=== PATIENT | male | born 1945 | race Caucasian/White ===

== ENCOUNTER 2017-05-24 19:52 | Inpatient (IN) | payer OTHER, MEDICAID ==
[2017-05-24] MEDS ORDERED: TORADOL 30 MG VIAL IVP STA (20:44)
[2017-05-24] MEDS ORDERED: ZOFRAN INJ 4 MG VIAL IVP ONE (20:46)
[2017-05-24] MEDS ORDERED: PEPCID 20 MG IV PREMIX* 20 MG/50 ML BAG IV ONE ×2 (20:47→21:14)
--- NOTE | 2017-05-24 20:52 | DR.GENAD ---
HPI - PCP Primary Care Physician: PK NELSON - Complaint/Symptoms Chief Complaint Doctors Comments: Patient is complaining of his stomach hurting like someone is beating him up inside for the past 24 hours. States he has been having problems with his bowel movement and only had a small watery stool today. Normally he has to take something for his bowels to move. States he is out of his pain medicines and need something for his pain. States he can get his pain medicines filled tomorrow. He is complaining of chest pain with SOB. His appetite has been decreased and his stomach has been cramping with the pain 9 of 10. States he is a patient of Dr. Velazquez. He denies dysuria, hematuria or any recent trauma. States he is on two liters of oxygen at home at all times. Chief Complaint:: "I CAN'T HARDLY BREATHE, MY STOMACH IS CRAMPING AND HURTING, MY BOWELS WON'T MOVE, DIZZY, AND FEEL BAD HELL." - Nurses notes reviewed Nurses Notes Review: Yes - Source History Provided: Patient - Mode of Arrival Mode of Arrival: Wheelchair - Timing Onset of Chief Complaint: 05/24/17 Came on: Gradually - Duration Duration: Intermittent How lon Duration: Days - Location Location: diffuse abdominal pain - Severity Severity: Moderate, Severe - Modifying Factors Worsens:: nothing Improves:: nothing PMH - PMH Past Medical History: Yes Past Medical History: Anxiety, Asthma, CHF, COPD, Coronary Artery Disease, Diabetes, Dyslipidemia, Hypertension, [place] Past Medical History Comment: PACEMAKER/DEFIBRILLATOR Past Surgical History: Yes Surgical History: Angioplasty/Stents, Appendectomy, Cholecystectomy, Tonsillectomy Past Surgical History Comment: ADNOIDS REMOVED - Family History History of Family Medical Conditions: No - Social History Type of Tobacco Use: None Alcohol Use: None Do you use any recreational Drugs:: No Lives With: Family Lives Where: Home - infectious screening Have you traveled outside the country in the last 6 months?: No Isolation: Standard ROS - Review of Systems Constitutional: No Symptoms Reported, Weakness, Loss of Appetite. negative: See HPI, Chills, Diaphoresis, Fever, Malaise, Irritable, Fatigue, Other Eyes: No Symptoms Reported. negative: See HPI, Eye Pain, Blurred Vision, Tearing, Discharge, Photophobia, Diplopia, Other ENTM: No Symptoms Reported. negative: See HPI, Ear Pain, Ear Discharge, Pulling on Ears, Hearing Loss, Nose Pain, Nose Discharge, Epistaxis, Nose Congestion, Mouth Pain, Mouth Swelling, Loose Teeth, Drooling, Throat Pain, Throat Swelling, Ear Foreign Body Respiratoy: No Symptoms Reported, Non-Productive Cough, Short of Breath. negative: See HPI, Productive Cough, Moist Cough, Dry Cough, Hacking Cough, Barking Cough, Brassy Cough, Orthopnea, Stridor, Wheezing, Hemoptysis, Other Cardiovascular: No Symptoms Reported. negative: See HPI, Chest Pain, Edema, Palpitations, Syncope, Cyanosis, Skin Mottling, Other Gastrointestinal/Abdominal: Abdominal Pain, Constipation, Diarrhea, Nausea. negative: No Symptoms Reported, See HPI, Vomiting, Food Intolerance, Other Genitourinary: No Symptoms Reported. negative: See HPI, Discharge, Dysuria, Frequency, Hematuria, Pain, Bleeding, Other Neurological: No Symptoms Reported Musculoskeletal: No Symptoms Reported. negative: See HPI, Back Pain, Gout, Joint Pain, Joint Swelling, Muscle Pain, Muscle Stiffness, Neck Pain, Right, Left, Neck, Chest wall, Rib(s), Back, Shoulder, Arm, Elbow, Forearm, Wrist, Hand , Pelvis, Hip, Leg, Knee, Ankle, Foot, Other Integumentary: No Symptoms Reported. negative: See HPI, Change in Color, Change in Hair/Nails, Dryness, Lesions, Lumps, Rash, Itching, Wound, Bruises, Juandice, Other Hematologic/Lymphatic: No Symptoms Reported Endocrine: No Symptoms Reported Psychiatric: No Symptoms Reported. negative: See HPI, Anxiety, Depression, Hallucinations, Excessive crying, Suicidal, Other PE - Vital Signs Vitals: Temperature 97.3 F Pulse Rate 71 Respiratory Rate 24 Blood Pressure 139/70 O2 Sat by Pulse Oximetry 100 - General Limitations: No Limitations General Appearance: Alert, In Distress (mild), Obese - Head Head Exam: Normal Inspection, Atraumatic, Normocephalic - Eyes Eye exam: Normal Appearance, PERRL, EOMI. negative: Scleral Icterus, Conjunctival Injection, Nystagmus, Miosis, Mydrasis, Periorbital Swelling, Periorbital Tenderness, Other - ENT ENT Exam: Normal Exam, Normal Oropharynx, Normal External Ear Exam, Mucous Membranes Moist, TM's Normal Bilaterally External Ear Exam: Normal External Inspection TM/Canal Exam: Bilateral Normal Nose Exam: Normal Nose Exam Mouth Exam: Normal Inspection. negative: Drooling, Trismus, Lip Swelling, Tongue Elevation, Tongue Swelling, Laceration, Other Throat Exam: Normal Inspection. negative: Tonsillar Erythema, Tonsillomegaly, Tonsillar Exudate, R Peritonsillar Mass, L Peritonsillar Mass, Muffled Voice, Other - Neck Neck Exam: Normal Inspection, Full ROM, Trachea Midline. negative: Tenderness, Meningismus, Lymphadenopathy, Thyromegaly, Other - Chest Chest Inspection: Normal Inspection, Symmetric Chest Wall Rise. negative: Tenderness, Rash, Abscess, Other - Respiratory Respiratory Exam: Normal Lung Sounds Bilat Respiratory Exam: Bilateral Clear to Auscultation - Cardiovascular Cardiovascular Exam: Regular Rate, Normal Rhythm, Normal Heart Sounds. negative : Bradycardia, Tachycardia, Irregular Rhythm, Systolic Murmur, Diastolic Murmur , Rubs, Gallop, Clicks, JVD, +S1, +S2, +S3, +S4, Other - Abdominal Exam Abdominal Exam: Normal Inspection, Normal Bowel Sounds, Soft, Distention, Tenderness (suprapubic and RLQ tenderness), Guarding, Hyperactive Bowel Sounds Abdominal Tenderness: RLQ, Suprapubic, Moderate - Extremities Extremities Exam: Normal Inspection, Full ROM, Normal Capillary Refill - Back Back Exam: Normal Inspection, Full ROM. negative: Tenderness, (R) CVA Tenderness, (L) CVA Tenderness, Muscle Spasm, Paraspinal Tenderness, Vertebral Tenderness, Rashes, (R) Sciatic Notch Tenderness, (L) Sciatic Notch Tendern, (R ) Straight Leg Raise, (L) Straight Leg Raise, Other - Neurologic Neurological Exam: Alert, Oriented X3, CN II-XII Intact, Reflexes Normal. negative: Normal Gait (gait not tested) - Psychiatric Psychiatric Exam: Normal Affect, Normal Mood - Skin Skin Exam: Warm, Dry, Intact, Normal Color Course - Reevaluation 1st: Improved - Consultation Called: 23:01 Call Returned: 23:01 (Dr. Gross to admit) - Education/Counseling Education/Counseling: Patient, Family Educated On: Treatment, Diagnosis ROR - Labs Reviewed Laboratory Results Reviewed?: Yes (all labs and x-ray results reviewed and discussed with patient) Result Diagrams: 05/24/17 21:10 05/24/17 21:10 Laboratory: WBC 19.6 X10^3/uL (3.6-10.0) H 05/24/17 21:10 RBC 5.61 X10^6/uL (4.7-6.0) 05/24/17 21:10 Hgb 12.0 g/dL (13.5-18.0) L 05/24/17 21:10 Hct 38.7 % (42.0-54.0) L 05/24/17 21:10 MCV 69.0 fL (80.0-100.0) L 05/24/17 21:10 MCH 21.4 pg (27.0-34.0) L 05/24/17 21:10 MCHC 31.0 g/dL (33.0-35.0) L 05/24/17 21:10 RDW 19.8 % (11.6-16.5) H 05/24/17 21:10 Plt Count 218 X10^3/uL (150.0-450.0) 05/24/17 21:10 Plt Count Comment Adequate (ADEQUATE) 05/24/17 21:10 MPV 11.1 fL (7.4-11.0) H 05/24/17 21:10 Neut % 89.2 % (42.0-75.0) H 05/24/17 21:10 Lymph % 3.9 % (21.0-51.0) L 05/24/17 21:10 Clinch % 4.1 % (0.0-13.0) 05/24/17 21:10 Eos % 1.2 % (0.9-2.9) 05/24/17 21:10 Baso % 1.6 % (0.2-1.0) H 05/24/17 21:10 Neut # 17.5 x10^3/uL (2.2-4.8) H 05/24/17 21:10 Lymph # 0.8 X10^3/uL (1.3-2.9) L 05/24/17 21:10 Clinch # 0.8 x10^3/uL (0.3-0.8) 05/24/17 21:10 Eos # 0.2 x10^3/uL (0.0-0.2) 05/24/17 21:10 Baso # 0.3 X10^3/uL (0.0-0.1) H 05/24/17 21:10 Absolute Nucleated RBC 0.0 /100WBC 05/24/17 21:10 Total Counted 100 05/24/17 21:10 Neutrophils % (Manual) 92 % (39-76) H 05/24/17 21:10 Lymphocytes % (Manual) 5 % (13-43) L 05/24/17 21:10 Monocytes % (Manual) 3 % (4-9) L 05/24/17 21:10 Plt Morphology Comment Normal (NORMAL) 05/24/17 21:10 RBC Morphology Abnormal (NORMAL) 05/24/17 21:10 Hypochromasia 1+ A 05/24/17 21:10 Poikilocytosis 1+ A 05/24/17 21:10 Microcytosis 1+ A 05/24/17 21:10 INR Target Range - 05/24/17 21:10 INR 1.08 (0.8-1.3) 05/24/17 21:10 PTT 30.7 SECONDS (22.9-36.5) 05/24/17 21:10 PTT Comment - 05/24/17 21:10 Sodium 134 mmol/L (136-145) L 05/24/17 21:10 Corrected Sodium 138 mmol/L (136-145) 05/24/17 21:10 Potassium 5.3 mmol/L (3.5-5.1) H 05/24/17 21:10 Chloride 100 mmol/L (98-107) 05/24/17 21:10 Carbon Dioxide 26.3 mmol/L (21-32) 05/24/17 21:10 BUN 37 mg/dL (7-18) H 05/24/17 21:10 Creatinine 1.58 mg/dL (0.70-1.30) H 05/24/17 21:10 Est GFR (MDRD) Af Amer 56 (>60) L 05/24/17 21:10 Est GFR (MDRD) Non-Af 46 (>60) L 05/24/17 21:10 Glucose 246 mg/dL (65-99) H 05/24/17 21:10 Calcium 8.9 mg/dL (8.5-10.1) 05/24/17 21:10 Corrected Calcium 9.5 mg/dL (8.5-10.1) 05/24/17 21:10 Magnesium 1.8 mg/dL (1.7-2.9) 05/24/17 21:10 Total Bilirubin 0.30 mg/dL (0.2-1.0) 05/24/17 21:10 AST 15 Units/L (15-37) 05/24/17 21:10 ALT 18 Units/L (12-78) 05/24/17 21:10 Alkaline Phosphatase 108 Units/L (46-116) 05/24/17 21:10 Creatine Kinase 40 Units/L (39-308) 05/24/17 21:10 CK-MB (CK-2) 1.3 ng/mL (0-4.0) 05/24/17 21:10 CK/CKMB % Calc 3.3 % (<4) 05/24/17 21:10 Troponin I 0.02 ng/mL (0-1.5) 05/24/17 21:10 Total Protein 7.4 g/dL (6.4-8.2) 05/24/17 21:10 Albumin 3.3 g/dL (3.4-5.0) L 05/24/17 21:10 Globulin 4.1 g/dL (2.5-4.5) 05/24/17 21:10 Albumin/Globulin Ratio 0.8 Ratio (1.1-2.1) L 05/24/17 21:10 Amylase 64 Units/L (25-115) 05/24/17 21:10 Lipase 78 Units/L (73-393) 05/24/17 21:10 - XRAY XRAY Interpreted by: Radiologist (CT abdomen and pelvis: Acute distal descending colon and sigmoid colon diverticulitis without free air. Mild right hydronephrois.cardiomegaly) - EKG Rate: 76 Ke[place]: Normal Rhythm: NSR Block: RBBB, IVCD Hypertrophy: LVH - Diagnosis Discharge Problem: acute distal descending diverticulitis, Colon, diverticulosis, Chronic kidney disease (CKD), Hyperkalemia, Right kidney stone - Discharge Plan Disposition: ADMITTED INPATIENT Condition: Stable - Follow ups/Referrals - Instructions
--- NOTE | 2017-05-24 21:05 | RAD ---
Chest AP portable Indication: Dyspnea. Stomach current. Constipation. Findings: There is cardiomegaly with AICD lead projecting as expected. Overlying monitoring lead sign ificantly obscure detail. There is right upper lung granuloma suspected. There is no pneumothorax, la rge effusion dense consolidation. Mild increased interstitial markings noted. Impression: Cardiomegaly and borderline edema. Correlate for signs CHF. Reported By:
[2017-05-24] MEDS ORDERED: ZOFRAN INJ 4 MG VIAL ONE (21:14)
[2017-05-24] MEDS ORDERED: TORADOL 30 MG VIAL ONE (21:14)
[2017-05-24 21:19] LABS: BASOPHILS # (AUTO) 0.3 X10^3/uL (0.0-0.1); BASOPHILS % (AUTO) 1.6 % (0.2-1.0); EOSINOPHILS # (AUTO) 0.2 x10^3/uL (0.0-0.2); EOSINOPHILS % (AUTO) 1.2 % (0.9-2.9); HEMATOCRIT 38.7 % (42.0-54.0); LYMPHOCYTES # (AUTO) 0.8 X10^3/uL (1.3-2.9); LYMPHOCYTES % (AUTO) 3.9 % (21.0-51.0); MEAN CORPUSCULAR HEMOGLOBIN 21.4 pg (27.0-34.0); MEAN PLATELET VOLUME 11.1 fL (7.4-11.0); MONOCYTES # (AUTO) 0.8 x10^3/uL (0.3-0.8); MONOCYTES % (AUTO) 4.1 % (0.0-13.0); NEUTROPHILS # (AUTO) 17.5 x10^3/uL (2.2-4.8); NEUTROPHILS % (AUTO) 89.2 % (42.0-75.0); PLATELET COUNT 218 X10^3/uL (150.0-450.0); RED BLOOD COUNT 5.61 X10^6/uL (4.7-6.0); RED CELL DISTRIBUTION WIDTH 19.8 % (11.6-16.5); WHITE BLOOD COUNT 19.6 X10^3/uL (3.6-10.0)
--- NOTE | 2017-05-24 21:19 | CT ---
CT head without contrast Indication: Abdominal pain and chronic constipation. History of heart disease, diabetes and hypertens ion. Technique: Helical images through the abdomen and pelvis without contrast. Coronal and sagittal refor mats provided. Findings: Limited images through the lower chest shows chronic peribronchial thickening and scarring in the right middle lobe. There is right effusion. There is cardiomegaly with AICD leads noted. The r eview of bone windows demonstrates spine and pelvis degenerative change. Abdomen: The gallbladder is absent. The liver, spleen pancreas show no acute abnormality. A few pancr eas calcifications and atrophic changes noted, suggesting prior pancreatitis no current acute pancrea titis evidence seen. The adrenal glands are normal. The stomach and small bowel appear normal. Append ix is not seen, absent by history. The right colon is normal. There is colonic diverticulosis, with i nflammatory change around the sigmoid colon axial image 79 and the distal descending colon axial 70 t hrough 72 suggesting acute diverticulitis no drainable abscess gross free air noted. The left kidney is normal without hydroureteronephrosis there is mild right hydronephrosis with tiny stone in the proximal right ureter near the ureteropelvic junction is seen on axial image 57 and radha ures 3 mm. Aortic and branch vessel plaque noted. Pelvis: The urinary bladder rectum. The prostate gland is. [place]: 1. Acute distal descending colon and sigmoid colon diverticulitis without free air, pneumatosis or dr ainable collection. Surgical follow-up recommended. 2. Mild right hydronephrosis with tiny stone at the right ureteropelvic junction. 3. Cardiomegaly, chronic lung changes, spine degenerative change, sequela of old pancreatitis and oth er findings as above Reported By:
[2017-05-24 21:26] LABS: HYPOCHROMASIA 1+; MICROCYTOSIS 1+; PLATELET MORPHOLOGY COMMENT NORMAL (NORMAL); POIKILOCYTOSIS 1+
[2017-05-24 21:38] LABS: CALCIUM 8.9 mg/dL (8.5-10.1); CARBON DIOXIDE 26.3 mmol/L (21-32); CREATININE 1.58 mg/dL (0.70-1.30); TROPONIN I 0.02 ng/mL (0-1.5)
[2017-05-24] MEDS ORDERED: CIPRO IV 400 MG PREMIX* 400 MG/200 ML IV.SOLN. IV ONE ×2 (21:41→23:10)
[2017-05-24] MEDS ORDERED: FLAGYL IV PREMIX 500 MG BAG 500 MG/100 ML BAG IV ONE ×2 (21:41→21:48)
[2017-05-24 21:42] LABS: ALBUMIN 3.3 g/dL (3.4-5.0); CKMB % 3.3 % (<4); COR CA(FOR HYPOALB) 9.5 mg/dL (8.5-10.1); CREATINE KINASE MB 1.3 ng/mL (0-4.0); MAGNESIUM 1.8 mg/dL (1.7-2.9); TOTAL PROTEIN 7.4 g/dL (6.4-8.2)
[2017-05-24] MEDS: NS 1000 ML 1,000 ML IV SCH (22:01)
[2017-05-24 22:16] LABS: BILIRUBIN,URINE NEGATIVE (NEGATIVE); BLOOD/HEMOGLOBIN,URINE 5+ (NEGATIVE); GLUCOSE, URINE NEGATIVE (NEGATIVE); KETONES,URINE NEGATIVE (NEGATIVE); LEUKOCYTE ESTERASE ,URINE NEGATIVE (NEGATIVE); NITRITES,URINE NEGATIVE (NEGATIVE); PROTEIN,URINE 3+ (NEGATIVE); UROBILINOGEN,URINE NORMAL (NORMAL)
[2017-05-24] MEDS ORDERED: PERCOCET TAB 5/325 MG PO PRN (22:32)
[2017-05-24] MEDS ORDERED: PHENERGAN INJ 25 MG IVP PRN (22:32)
[2017-05-24 22:39] LABS: APPEARANCE,URINE CLEAR (CLEAR); BACTERIA,URINE NEGATIVE /HPF (NEGATIVE); COLOR,URINE YELLOW (YELLOW); SQUAMOUS EPITHELIAL CELL,UR RARE /HPF (NEGATIVE)
[2017-05-25] MEDS: FLAGYL IV PREMIX 500 MG BAG 500 MG/100 ML BAG IV SCH ×3 (06:13→22:36)
[2017-05-25] MEDS: PROTONIX INJ 40 MG VIAL IVP SCH (08:43)
[2017-05-25] MEDS: CIPRO IV 400 MG PREMIX* 400 MG/200 ML IV.SOLN. IV SCH ×2 (08:43→20:22)
[2017-05-25 09:20] LABS: BASOPHILS # (AUTO) 0.2 X10^3/uL (0.0-0.1); BASOPHILS % (AUTO) 1.3 % (0.2-1.0); EOSINOPHILS # (AUTO) 0.1 x10^3/uL (0.0-0.2); EOSINOPHILS % (AUTO) 1.2 % (0.9-2.9); HEMOGLOBIN 10.1 g/dL (13.5-18.0); LYMPHOCYTES # (AUTO) 0.7 X10^3/uL (1.3-2.9); LYMPHOCYTES % (AUTO) 5.9 % (21.0-51.0); MEAN CORPUSCULAR HEMOGLOBIN 21.4 pg (27.0-34.0); MEAN CORPUSCULAR HGB CONC 31.6 g/dL (33.0-35.0); MEAN CORPUSCULAR VOLUME 67.7 fL (80.0-100.0); MEAN PLATELET VOLUME 10.9 fL (7.4-11.0); MONOCYTES # (AUTO) 0.8 x10^3/uL (0.3-0.8); NEUTROPHILS % (AUTO) 84.6 % (42.0-75.0); PLATELET COUNT 170 X10^3/uL (150.0-450.0); RED BLOOD COUNT 4.73 X10^6/uL (4.7-6.0); RED CELL DISTRIBUTION WIDTH 19.8 % (11.6-16.5); WHITE BLOOD COUNT 11.8 X10^3/uL (3.6-10.0)
[2017-05-25 09:29] LABS: ALBUMIN 2.6 g/dL (3.4-5.0); CALCIUM 8.1 mg/dL (8.5-10.1); CARBON DIOXIDE 24.3 mmol/L (21-32); COR CA(FOR HYPOALB) 9.2 mg/dL (8.5-10.1); CREATININE 1.95 mg/dL (0.70-1.30)
[2017-05-25 09:34] LABS: PLATELET MORPHOLOGY COMMENT NORMAL (NORMAL)
[2017-05-25 09:35] LABS: HYPOCHROMASIA 2+
[2017-05-25 09:36] LABS: POIKILOCYTOSIS SLIGHT
[2017-05-25 09:37] LABS: ANISOCYTOSIS 2+; MICROCYTOSIS 1+
[2017-05-25 09:38] LABS: OVALOCYTES SLIGHT
[2017-05-25] MEDS: MORPHINE SULFATE INJ 2 MG INJ IVP PRN ×2 (10:11→20:45)
[2017-05-25] MEDS ORDERED: ATIVAN TAB 0.5 MG PO PRN (11:35)
--- NOTE | 2017-05-25 11:41 | DR.H&P ---
H&P - History & Physical for Day of: H&P Date: 05/24/17 - Chief Complaint Chief Complaint: ABDOMINAL PAIN - Allergies Allergies/Adverse Reactions: Allergies Allergy/AdvReac Type Severity Reaction Status Date / Time zolpidem [From Ambien] Allergy Verified 05/24/17 20:00 - History of Present Illness History of Present Illness: 71 WM ER ADMISSION WITH ABD PAIN, CT SCAN REVEALED ACUTE DIVERTICULITIS. PT STARTED ON IV ATBX, ADMITTED FOR EALUATION AND TREATMENT OF ACUTE DIVERTICULITIS AND ABDOMINAL PAIN. PMH OF DM, CHF, CAD, GERD , DEPRESSION, OA - Past Medical History Past Medical History: Anxiety, Asthma, CHF, COPD, Coronary Artery Disease, Diabetes, Dyslipidemia, Hypertension, [place] - Past Surgical History Surgical History: Appendectomy, Cholecystectomy - Family History Family Medical History: Diabetes Mellitus, [place], Hypertension - Social History Does patient currently use any type of tobacco product: No (stopped 25 years ago ) Have you used tobacco products in the last 12 months: No Type of Tobacco Use: Cigarettes How many years tobacco product used: 35 Does any household member use tobacco: No Alcohol Use: None Drug Use: None - Medications Home Medications: Albuterol Sulfate [VENTOLIN or PROAIR HFA Inhaler *] 2 inhalation INH Q4H PRN [History Confirmed 05/24/17] Aspirin EC [ASPIRIN EC 81 MG *] 81 mg PO DAILY 05/24/17 [History Confirmed 05/24] Atorvastatin Calcium [Lipitor] 80 mg PO HS 05/24/17 [History Confirmed 05/24/17] Budesonide-Formoterol [SYMBICORT INH 160-4.5 mcg (10.2 g) *] 2 inhalation INH BID 05/24/17 [History Confirmed 05/24/17] Carvedilol [COREG TAB 12.5 MG *] 12.5 mg pe PO BID 05/24/17 [History Confirmed 05/24/17] Clopidogrel Bisulfate [PLAVIX TAB 75 MG *] 75 mg PO DAILY 05/24/17 [History Confirmed 05/24/17] Dexlansoprazole [Dexilant] 1 cap PO DAILY 05/24/17 [History Confirmed 05/24/17] Fluoxetine HCl [Prozac cap 40 mg] 40 mg PO DAILY 05/24/17 [History Confirmed 06/09] Furosemide [LASIX TAB 40 MG *] 1 tab PO DAILY 05/24/17 [History Confirmed ] Hydrocodone-Acet 10/325 mg [[place] 10/325 Tab] 1 tab PO QID PRN 05/24/17 [ History Confirmed 05/24/17] Insulin Glargine (Lantus) [LANTUS INSULIN 10 ML VIAL *] 35 units SC QAM [History Confirmed 05/24/17] Lorazepam [Ativan Tab 0.5 mg] 0.5 mg PO Q6H PRN 05/24/17 [History Confirmed 06/09] Meclizine HCl [Antivert Tab 25 mg] 25 mg PO TID PRN 05/24/17 [History Confirmed 05/24/17] Metoclopramide HCl [Reglan] 5 mg PO BID 05/24/17 [History Confirmed 05/24/17] Plecanatide [Trulance] 1 tab PO DAILY 05/24/17 [History Confirmed 05/24/17] Sacubitril/Valsartan [Entresto 24 mg-26 mg Tablet] 1 tab PO BID 05/24/17 [ History Confirmed 05/24/17] Theophylline Sr [JAY-DUR 300 MG (GENERIC) *] 0.5 tab PO BID 05/24/17 [History Confirmed 05/24/17] Tizanidine HCl [Zanaflex] 4 mg PO HS PRN 05/24/17 [History Confirmed 05/24/17] Sulfamethoxazole-Trimethoprim [BACTRIM DS TAB 800/160 MG *] 1 tab PO BID [History Confirmed 05/25/17] - Review of Systems Constitutional: Fever, Chills Eyes: No Symptoms Reported ENT: No Symptoms Reported Respiratory: SOB with Excertion Cardiovascular: No Symptoms Reported Gastrointestinal: Nausea, Abdominal Pain Genitourinary: No Symptoms Reported Musculoskeletal: Back Pain, Leg Pain Skin: No Symptoms Reported Neurological: No Symptoms Reported - Physical Exam Vital Signs: Temperature 97.5 F Pulse Rate [Apical] 75 Pulse Rate 71 Respiratory Rate 20 Blood Pressure [Right Arm] 104/55 Blood Pressure 139/70 O2 Sat by Pulse Oximetry 99 Oriented: Normal Eyes: Normal Ear: Normal, Left Throat: Normal Respiratory: RLL Diminished, LLL Diminished Cardiovascular: Normal, Other (PACER/DEFIBRILLATOR PRESENT) : Normal Auscultation: Bowel Sounds: Decreased Palpation: Normal Tenderness: Diffuse Skin: Normal Musculoskeletal: Back:Lumbar, Instability Psychiatric: Depression Affect: Depressed Speech Pattern: Clear, Appropriate - Assessment/Plan (1) Diverticulitis Status: Acute Plan: ADMIT, NPO, IV ATBX, BP MONITORING. BLOOD SUGAR CONTROL. REPEAT AM LABS , REVIEW HOME MEDS (2) CAD (coronary artery disease) Status: Acute (3) HTN (hypertension) Status: Acute (4) Diabetes Status: Acute (5) Chronic kidney disease (CKD) Status: Acute
[2017-05-25] MEDS ORDERED: ALBUTEROL SULFATE INH SCH (11:45)
[2017-05-25] MEDS: HumuLIN R SC PRN ×2 (11:51→16:58)
[2017-05-25] MEDS: NS 1000 ML 1,000 ML IV SCH ×2 (12:14→16:14)
[2017-05-25] MEDS: GYLCERIN ADULT SUPP RECTAL SCH (16:14)
[2017-05-25] MEDS: PROVENTIL NEB TX 0.083% 2.5MG/ 3ML NEB SCH (16:53)
[2017-05-25] MEDS ORDERED: NULYTELY or GO-LYTELY PO SCH (19:00)
--- NOTE | 2017-05-25 19:28 | RAD ---
ACUTE ABDOMINAL SERIES CLINICAL HISTORY: 71-year-old male with acute diverticulitis. COMPARISON: Chest radiograph 05/24/2017. FINDINGS: Re-demonstration cardiomegaly with stable appearance of left chest wall AICD. There is no focal conso lidation, pleural effusion or pneumothorax. Pulmonary vascularity is normal. Abdominal radiographs demonstrate a nonobstructive bowel gas pattern. Gas and stool are seen througho ut the colon. There is no small bowel distention. There is no radiographic evidence of pneumoperitone um. Imaged osseous structures are intact. Soft tissues are unremarkable. IMPRESSION: 1. No acute cardiopulmonary process. 2. Nonobstructive bowel gas pattern without radiographic evidence of pneumoperitoneum. Reported By:
[2017-05-25] MEDS: THEO-DUR TAB 300 MG PO SCH (20:26)
[2017-05-25] MEDS: LIPITOR TAB 40 MG PO SCH (20:26)
[2017-05-25] MEDS: REGLAN TAB 5 MG PO SCH (20:27)
[2017-05-25] MEDS: ENTRESTO 24/26 MG TAB PO SCH (20:27)
[2017-05-25] MEDS: COREG TAB 12.5 MG PO SCH (20:27)
[2017-05-25] MEDS ORDERED: RESTORIL CAP 15 MG PO PRN (20:36)
[2017-05-25] MEDS ORDERED: PATIENT'S HOME MEDICATION (Atorvastatin Calcium [Lipitor] 80 MG) PO SCH (21:00)
[2017-05-25] MEDS ORDERED: BUDESONIDE FORMOTEROL INH SCH (21:00)
[2017-05-26] MEDS: PULMICORT NEB TX 0.5 MG NEB SCH ×3 (00:23→20:17)
[2017-05-26] MEDS: PROVENTIL NEB TX 0.083% 2.5MG/ 3ML NEB SCH ×5 (00:23→20:17)
[2017-05-26] MEDS: NS 1000 ML 1,000 ML IV SCH ×3 (03:39→16:49)
[2017-05-26] MEDS: FLAGYL IV PREMIX 500 MG BAG 500 MG/100 ML BAG IV SCH ×3 (05:20→21:04)
[2017-05-26 05:34] LABS: BASOPHILS # (AUTO) 0.1 X10^3/uL (0.0-0.1); BASOPHILS % (AUTO) 0.6 % (0.2-1.0); EOSINOPHILS # (AUTO) 0.2 x10^3/uL (0.0-0.2); EOSINOPHILS % (AUTO) 2.3 % (0.9-2.9); HEMATOCRIT 30.5 % (42.0-54.0); HEMOGLOBIN 9.9 g/dL (13.5-18.0); LYMPHOCYTES # (AUTO) 0.9 X10^3/uL (1.3-2.9); MEAN CORPUSCULAR HEMOGLOBIN 22.1 pg (27.0-34.0); MEAN CORPUSCULAR HGB CONC 32.4 g/dL (33.0-35.0); MEAN CORPUSCULAR VOLUME 68.1 fL (80.0-100.0); MEAN PLATELET VOLUME 11.3 fL (7.4-11.0); MONOCYTES # (AUTO) 0.9 x10^3/uL (0.3-0.8); MONOCYTES % (AUTO) 9.4 % (0.0-13.0); NEUTROPHILS # (AUTO) 7.5 x10^3/uL (2.2-4.8); NEUTROPHILS % (AUTO) 78.7 % (42.0-75.0); PLATELET COUNT 157 X10^3/uL (150.0-450.0); RED BLOOD COUNT 4.48 X10^6/uL (4.7-6.0); RED CELL DISTRIBUTION WIDTH 19.3 % (11.6-16.5); WHITE BLOOD COUNT 9.5 X10^3/uL (3.6-10.0)
[2017-05-26 05:46] LABS: ALBUMIN 2.5 g/dL (3.4-5.0); CALCIUM 8.3 mg/dL (8.5-10.1); CARBON DIOXIDE 26.2 mmol/L (21-32); COR CA(FOR HYPOALB) 9.5 mg/dL (8.5-10.1); CREATININE 1.82 mg/dL (0.70-1.30); TOTAL PROTEIN 5.8 g/dL (6.4-8.2)
[2017-05-26 06:20] LABS: HYPOCHROMASIA 2+; MICROCYTOSIS 1+; OVALOCYTES PRESENT; PLATELET MORPHOLOGY COMMENT NORMAL (NORMAL); POIKILOCYTOSIS 1+
[2017-05-26] MEDS: CIPRO IV 400 MG PREMIX* 400 MG/200 ML IV.SOLN. IV SCH ×2 (08:24→21:04)
[2017-05-26] MEDS: COREG TAB 12.5 MG PO SCH ×2 (08:25→21:04)
[2017-05-26] MEDS: PROTONIX INJ 40 MG VIAL IVP SCH (08:25)
[2017-05-26] MEDS: REGLAN TAB 5 MG PO SCH ×2 (08:25→21:04)
[2017-05-26] MEDS: ENTRESTO 24/26 MG TAB PO SCH ×2 (08:25→21:04)
[2017-05-26] MEDS: LASIX PO SCH (08:26)
[2017-05-26] MEDS: NORCO 10/325 TAB PO PRN (08:26)
[2017-05-26] MEDS: THEO-DUR TAB 300 MG PO SCH ×2 (08:26→21:01)
[2017-05-26] MEDS: PROzac PO SCH (08:27)
[2017-05-26] MEDS: LANTUS SC SCH (08:29)
[2017-05-26] MEDS: PATIENT'S HOME MEDICATION (Dexlansoprazole [Dexilant] 1 CAP) PO SCH (08:32)
[2017-05-26] MEDS ORDERED: PATIENT'S HOME MEDICATION (Fluoxetine Hcl [Prozac Cap 40 Mg] 40 MG) PO SCH (09:00)
[2017-05-26] MEDS: GYLCERIN ADULT SUPP RECTAL SCH (12:17)
[2017-05-26 14:16] LABS: HEMATOCRIT 29.5 % (42.0-54.0); HEMOGLOBIN 9.5 g/dL (13.5-18.0)
[2017-05-26] MEDS: LIPITOR TAB 40 MG PO SCH (21:03)
[2017-05-26] MEDS: MORPHINE SULFATE INJ 2 MG INJ IVP PRN (21:08)
[2017-05-27] MEDS: MORPHINE SULFATE INJ 2 MG INJ IVP PRN ×3 (01:20→11:40)
[2017-05-27] MEDS: FLAGYL IV PREMIX 500 MG BAG 500 MG/100 ML BAG IV SCH ×2 (05:14→13:15)
[2017-05-27] MEDS: NS 1000 ML 1,000 ML IV SCH (05:15)
[2017-05-27 06:12] LABS: BASOPHILS % (AUTO) 0.5 % (0.2-1.0); EOSINOPHILS # (AUTO) 0.2 x10^3/uL (0.0-0.2); EOSINOPHILS % (AUTO) 2.7 % (0.9-2.9); HEMATOCRIT 29.1 % (42.0-54.0); HEMOGLOBIN 9.5 g/dL (13.5-18.0); LYMPHOCYTES # (AUTO) 0.7 X10^3/uL (1.3-2.9); LYMPHOCYTES % (AUTO) 8.2 % (21.0-51.0); MEAN CORPUSCULAR HGB CONC 32.5 g/dL (33.0-35.0); MEAN CORPUSCULAR VOLUME 67.6 fL (80.0-100.0); MEAN PLATELET VOLUME 11.4 fL (7.4-11.0); MONOCYTES # (AUTO) 0.8 x10^3/uL (0.3-0.8); MONOCYTES % (AUTO) 9.1 % (0.0-13.0); NEUTROPHILS # (AUTO) 6.9 x10^3/uL (2.2-4.8); NEUTROPHILS % (AUTO) 79.5 % (42.0-75.0); PLATELET COUNT 143 X10^3/uL (150.0-450.0); RED CELL DISTRIBUTION WIDTH 19.4 % (11.6-16.5); WHITE BLOOD COUNT 8.6 X10^3/uL (3.6-10.0)
[2017-05-27 06:49] LABS: HYPOCHROMASIA 1+; MICROCYTOSIS SLIGHT; PLATELET MORPHOLOGY COMMENT NORMAL (NORMAL)
[2017-05-27 06:51] LABS: ALANINE AMINOTRANSFERASE 13 Units/L (12-78); ALBUMIN 2.5 g/dL (3.4-5.0); ALKALINE PHOSPHATASE 60 Units/L (46-116); ASPARTATE AMINO TRANSFERASE 12 Units/L (15-37); BLOOD UREA NITROGEN 26 mg/dL (7-18); CALCIUM 8.1 mg/dL (8.5-10.1); CARBON DIOXIDE 23.9 mmol/L (21-32); CHLORIDE 103 mmol/L (98-107); COR CA(FOR HYPOALB) 9.3 mg/dL (8.5-10.1); COR NA(FOR HYPERGLY) 137 mmol/L (136-145); CREATININE 1.37 mg/dL (0.70-1.30); SODIUM 136 mmol/L (136-145); TOTAL PROTEIN 5.6 g/dL (6.4-8.2); eGFR BLACK RACES > 60 (>60); eGFR NON BLACK RACES 54 (>60)
[2017-05-27] MEDS: NORCO 10/325 TAB PO PRN (07:20)
--- NOTE | 2017-05-27 07:20 | RAD ---
Examination: PA and lateral chest History: SOB, chest pain Comparison 05/24/2017 Findings: Continued cardiac prominence with stable position of AICD. The lungs are clear of active di sease. Small pleural effusions are present. A tubular structure projected over the anterior heart is consistent with coronary artery stent/calcification. Impression: Upper normal heart size with pacemaker. Small bilateral pleural effusions. Reported By:
--- NOTE | 2017-05-27 07:33 | CT ---
History: Follow-up acute diverticulitis Study: CT of the abdomen and pelvis without IV contrast. Sagittal and coronal reformations were provi ded. Comparison: May 24, 2017 Findings: There is a small right pleural effusion increased in size and a tiny left pleural effusion, new. There is an unchanged scar at the right lung base anteriorly. The liver and spleen and adrenal glands are unremarkable. There are couple of punctate calcifications in the head and uncinate process of the pancreas. There is persistent mild right hydronephrosis with a mildly dilated right ureter. T he previously demonstrated calculus at the right UPJ has progressed down the ureter to either be in t he bladder or in the distal ureteral vesicle junction. There is persistent stranding of fat planes about the sigmoid colon with multiple diverticuli. There is a new fluid collection above the dome of the bladder measuring over 3 cm transverse width and 4.4 cm AP diameter. There is no small bowel distention. There are degenerative changes of the lumbar spin e and there is heavy atherosclerotic calcification without demonstration of an aneurysm. Impression: 1. Increasingly severe diverticulitis with new fluid collection above the dome of the bladder that ma y be a developing abscess. 2. Increasing size of a small right pleural effusion and a new minimal left pleural effusion 3. Mild right hydronephrosis and right hydroureter with a 2 mm calculus now advanced into the bladder or in the distal ureterovesical junction Reported By:
[2017-05-27] MEDS: PROzac PO SCH (08:00)
[2017-05-27] MEDS: CIPRO IV 400 MG PREMIX* 400 MG/200 ML IV.SOLN. IV SCH (08:00)
[2017-05-27] MEDS: REGLAN TAB 5 MG PO SCH (08:00)
[2017-05-27] MEDS: LASIX PO SCH (08:00)
[2017-05-27] MEDS: COREG TAB 12.5 MG PO SCH (08:00)
[2017-05-27] MEDS: PROTONIX INJ 40 MG VIAL IVP SCH (08:00)
[2017-05-27] MEDS: THEO-DUR TAB 300 MG PO SCH (08:00)
[2017-05-27] MEDS: ENTRESTO 24/26 MG TAB PO SCH (08:00)
[2017-05-27] MEDS: PROVENTIL NEB TX 0.083% 2.5MG/ 3ML NEB SCH ×2 (09:05→12:55)
[2017-05-27] MEDS: PULMICORT NEB TX 0.5 MG NEB SCH (09:05)
[2017-05-27] MEDS ORDERED: LASIX IVP ONE (09:21)
[2017-05-27] MEDS: LANTUS SC SCH (10:00)
[2017-05-27] MEDS: PATIENT'S HOME MEDICATION (Dexlansoprazole [Dexilant] 1 CAP) PO SCH (10:00)
[2017-05-27] MEDS ORDERED: NS 1000 ML 1,000 ML IV SCH (11:00)
[2017-05-27 11:47] VITALS: BP 125/60
[2017-05-27 12:55] VITALS: BMI 27.5
== END 2017-05-27 14:05 | disposition short-term general hospital (02) | DRG 392 ==
LOC: ER 20:12 → MED/SURG 22:30
PROVIDERS: ADMIT Internal Medicine; ATTEND Internal Medicine
DX: K57.32 Diverticulitis of large intestine without perforation or abscess without bleeding (principal); N13.39 Other hydronephrosis; E87.5 Hyperkalemia; I25.10 Atherosclerotic heart disease of native coronary artery without angina pectoris; E11.65 Type 2 diabetes mellitus with hyperglycemia; E78.2 Mixed hyperlipidemia; I12.9 Hypertensive chronic kidney disease with stage 1 through stage 4 chronic kidney disease, or unspecified chronic kidney disease; Z95.810 Presence of automatic (implantable) cardiac defibrillator; N18.9 Chronic kidney disease, unspecified; R10.84 Generalized abdominal pain; J44.9 Chronic obstructive pulmonary disease, unspecified; R06.02 Shortness of breath
CPT/HCPCS: 36415; 71045; 71046; 74022; 74176; 80053; 81001; 82150; 82550; 82553; 83690; 83735; 84484; 85014; 85018; 85025; 85610; 85730; 93005; 93010; 94640; 94760; 96365; 96374; 96375; 99231; 99284; A4216; A4222; C9113; S0028; S0030; J0744; J1815; J1885; J1940; J2270; J2405; J2550; J7613; J7626

== ENCOUNTER 2018-04-11 09:27 | Inpatient (IN) ==
[2018-04-11 09:36] VITALS: BMI 26.5
[2018-04-11] MEDS ORDERED: PROVENTIL NEB TX 0.083% 2.5MG/ 3ML NEB ONE (10:11)
--- NOTE | 2018-04-11 10:11 | DR.GENAD ---
HPI Time Seen Time Seen by Provider: 04/11/18 10:07 PCP Primary Care Physician: suzanne christy Complaint/Symptoms Chief Complaint Doctors Comments: His c/o to me were about his ears feeling like closing and also he has been having SOB. He denies chest pain or palpitations. No diaphoresis, nausea or vomiting. When doing his notes I noted nurses notes about falling and not eating for 4 months with dizziness. He states his main issues are the ears and breathing. also has swollen legs. Chief Complaint:: pt stated he has not been able to eat in 4 months and has been weak and he got up today and fell. stated he has been dizzy also. Nurses notes reviewed Nurses Notes Review: Yes Source History Provided: Patient and EMS Mode of Arrival Mode of Arrival: EMS Timing Onset of Chief Complaint: 11/22/17 PMH PMH Past Medical History: Yes Past Medical History: Anxiety, Asthma, CHF, COPD, Coronary Artery Disease, Diabetes, Dyslipidemia, Hypertension and [place] Past Surgical History: Yes Surgical History: Appendectomy and Cholecystectomy Family History History of Family Medical Conditions: Yes Family Medical History: Diabetes Mellitus, [place] and Hypertension Social History Does patient currently use any type of tobacco product: No Have you used tobacco products in the last 12 months: No Type of Tobacco Use: None Does any household member use tobacco: No Alcohol Use: None and Rarely Do you use any recreational Drugs:: No Lives With: Alone and Family Lives Where: Home infectious screening In the last 2 months have you had wt loss of >10#?: NO Have you had fever, night sweats or hemotysis?: No Have you traveled outside the country in the last 6 months?: No Isolation: Standard ROS Review of Systems Constitutional: Weakness Eyes: No Symptoms Reported ENTM: See HPI Respiratoy: Short of Breath Cardiovascular: No Symptoms Reported Gastrointestinal/Abdominal: No Symptoms Reported Genitourinary: No Symptoms Reported Neurological: Dizziness Musculoskeletal: No Symptoms Reported Integumentary: No Symptoms Reported Hematologic/Lymphatic: No Symptoms Reported Endocrine: No Symptoms Reported Psychiatric: No Symptoms Reported All Other Systems: Reviewed and Negative PE Vital Signs Vitals: Temperature 98.1 F Pulse Rate 85 Respiratory Rate 18 Blood Pressure [Right Arm] 125/60 Blood Pressure 108/55 O2 Sat by Pulse Oximetry 96 General General Appearance: Alert and In No Apparent Distress Head Head Exam: Normal Inspection and Normocephalic Eyes Eye exam: Normal Appearance and EOMI ENT ENT Exam: Normal Exam, Normal External Ear Exam and Mucous Membranes Moist Neck Neck Exam: Normal Inspection and Trachea Midline Chest Chest Inspection: Normal Inspection and Symmetric Chest Wall Rise Respiratory Respiratory Exam: Normal Lung Sounds Bilat Cardiovascular Cardiovascular Exam: Regular Rate, Normal Rhythm, Normal Heart Sounds, +S1 and +S2 Abdominal Exam Abdominal Exam: Normal Inspection, Normal Bowel Sounds and Soft Extremities Extremities Exam: Normal Inspection and Full ROM Back Back Exam: Normal Inspection Neurologic Neurological Exam: Alert and Oriented X3 Psychiatric Psychiatric Exam: Normal Affect and Normal Mood Skin Skin Exam: Warm, Dry and Normal Color ROR Labs Reviewed Laboratory Results Reviewed?: Yes Result Diagrams: 04/11/18 10:17 04/11/18 10:17 Laboratory: WBC 9.9 X10^3/uL (3.6-10.0) 04/11/18 10:17 RBC 4.83 X10^6/uL (4.7-6.0) 04/11/18 10:17 Hgb 12.7 g/dL (13.5-18.0) L 04/11/18 10:17 Hct 38.0 % (42.0-54.0) L 04/11/18 10:17 MCV 78.7 fL (80.0-100.0) L 04/11/18 10:17 MCH 26.2 pg (27.0-34.0) L 04/11/18 10:17 MCHC 33.3 g/dL (33.0-35.0) 04/11/18 10:17 RDW 16.4 % (11.6-16.5) 04/11/18 10:17 Plt Count 192 X10^3/uL (150.0-450.0) 04/11/18 10:17 MPV 10.2 fL (7.4-11.0) 04/11/18 10:17 Neut % (Auto) 81.5 % (42.0-75.0) H 04/11/18 10:17 Lymph % (Auto) 5.8 % (21.0-51.0) L 04/11/18 10:17 [place] % (Auto) 9.4 % (0.0-13.0) 04/11/18 10:17 Eos % (Auto) 2.6 % (0.9-2.9) 04/11/18 10:17 Baso % (Auto) 0.7 % (0.2-1.0) 04/11/18 10:17 Neut # (Auto) 8.1 x10^3/uL (2.2-4.8) H 04/11/18 10:17 Lymph # (Auto) 0.6 X10^3/uL (1.3-2.9) L 04/11/18 10:17 [place] # (Auto) 0.9 x10^3/uL (0.3-0.8) H 04/11/18 10:17 Eos # (Auto) 0.3 x10^3/uL (0.0-0.2) H 04/11/18 10:17 Baso # (Auto) 0.1 X10^3/uL (0.0-0.1) 04/11/18 10:17 Absolute Nucleated RBC 0.1 /100WBC 04/11/18 10:17 Sodium 124 mmol/L (136-145) L* 04/11/18 10:17 Corrected Sodium 138 mmol/L (136-145) 04/11/18 10:17 Potassium 5.2 mmol/L (3.5-5.1) H 04/11/18 10:17 Chloride 89 mmol/L (98-107) L 04/11/18 10:17 Carbon Dioxide 26.9 mmol/L (21-32) 04/11/18 10:17 BUN 45 mg/dL (7-18) H 04/11/18 10:17 Creatinine 1.63 mg/dL (0.70-1.30) H 04/11/18 10:17 Est GFR (MDRD) Af Amer 53 (>60) L 04/11/18 10:17 Est GFR (MDRD) Non-Af 44 (>60) L 04/11/18 10:17 Glucose 703 mg/dL (65-99) H* 04/11/18 10:17 POC Glucose (mg/dL) 296 mg/dL (65-99) H 04/11/18 14:51 Calcium 9.4 mg/dL (8.5-10.1) 04/11/18 10:17 Corrected Calcium 10.0 mg/dL (8.5-10.1) 04/11/18 10:17 Total Bilirubin 0.80 mg/dL (0.2-1.0) 04/11/18 10:17 AST 13 Units/L (15-37) L 04/11/18 10:17 ALT 22 Units/L (12-78) 04/11/18 10:17 Alkaline Phosphatase 198 Units/L (46-116) H 04/11/18 10:17 Total Protein 6.9 g/dL (6.4-8.2) 04/11/18 10:17 Albumin 3.2 g/dL (3.4-5.0) L 04/11/18 10:17 Globulin 3.7 g/dL (2.5-4.5) 04/11/18 10:17 Albumin/Globulin Ratio 0.9 Ratio (1.1-2.1) L 04/11/18 10:17 TSH 3rd Generation 1.985 uIU/mL (0.358-3.74) 04/11/18 10:17 Specimen Type Catherized urine 04/11/18 12:46 Urine Color Yellow (YELLOW) 04/11/18 12:46 Urine Appearance Clear (CLEAR) 04/11/18 12:46 Urine pH 5.0 (5.0 - 8.0) 04/11/18 12:46 Ur Specific [place] 1.010 (1.000-1.030) 04/11/18 12:46 Urine Protein Negative (NEGATIVE) 04/11/18 12:46 Urine Glucose (UA) 4+ (NEGATIVE) 04/11/18 12:46 Urine Ketones Negative (NEGATIVE) 04/11/18 12:46 Urine Occult Blood Negative (NEGATIVE) 04/11/18 12:46 Urine Nitrite Negative (NEGATIVE) 04/11/18 12:46 Urine Bilirubin Negative (NEGATIVE) 04/11/18 12:46 Urine Urobilinogen Normal (NORMAL) 04/11/18 12:46 Ur Leukocyte Esterase Negative (NEGATIVE) 04/11/18 12:46 Acetone, Semi-Quant Small (NEGATIVE) H 04/11/18 10:17 Other Results Comments: Radiologist read: Head CT Scan: no acute intracranial process identified. Diagnosis Discharge Problem: Hyponatremia, Type 2 DM with CKD and hypertension Diabetic keto-acidosis Qualifiers: Diabetes mellitus type: type 2 Diabetes mellitus complication detail: without coma Qualified Code(s): E11.10 - Type 2 diabetes mellitus with ketoacidosis without coma
[2018-04-11 10:29] LABS: BASOPHILS # (AUTO) 0.1 X10^3/uL (0.0-0.1); BASOPHILS % (AUTO) 0.7 % (0.2-1.0); EOSINOPHILS # (AUTO) 0.3 x10^3/uL (0.0-0.2); EOSINOPHILS % (AUTO) 2.6 % (0.9-2.9); HEMOGLOBIN 12.7 g/dL (13.5-18.0); LYMPHOCYTES # (AUTO) 0.6 X10^3/uL (1.3-2.9); LYMPHOCYTES % (AUTO) 5.8 % (21.0-51.0); MEAN CORPUSCULAR HEMOGLOBIN 26.2 pg (27.0-34.0); MEAN CORPUSCULAR HGB CONC 33.3 g/dL (33.0-35.0); MEAN CORPUSCULAR VOLUME 78.7 fL (80.0-100.0); MEAN PLATELET VOLUME 10.2 fL (7.4-11.0); MONOCYTES # (AUTO) 0.9 x10^3/uL (0.3-0.8); MONOCYTES % (AUTO) 9.4 % (0.0-13.0); NEUTROPHILS # (AUTO) 8.1 x10^3/uL (2.2-4.8); NEUTROPHILS % (AUTO) 81.5 % (42.0-75.0); PLATELET COUNT 192 X10^3/uL (150.0-450.0); RED BLOOD COUNT 4.83 X10^6/uL (4.7-6.0); RED CELL DISTRIBUTION WIDTH 16.4 % (11.6-16.5); WHITE BLOOD COUNT 9.9 X10^3/uL (3.6-10.0)
--- NOTE | 2018-04-11 10:48 | CT ---
HISTORY: Fall, dizziness Study: CT brain without contrast Comparison: None Technique: Multiple axial images of the brain were obtained from the skull base to the vertex without administration of IV contrast. Findings: No acute intraparenchymal hemorrhage or mass can be identified. No extra-axial fluid collections are seen. No alteration in the attenuation of the brain parenchyma can be identified to suggest acute or subacute ischemic change. The ventricles, sulci, and cisterns demonstrate an appearance consistent with a mild degree of generalized atrophy. Patchy areas of decreased attenuation within the periventricular, subcortical, and subinsular white matter suggest changes of chronic small vessel ischemic disease. Images demonstrate partial opacification and mucosal thickening of the ethmoid air cells. Mild mucosal thickening of the right maxillary sinus is also noted. If symptoms or clinical concern persist recommend continued follow-up for further evaluation. IMPRESSION: No acute intracranial process can be identified. Mild generalized atrophy with findings consistent with changes of chronic small vessel ischemic disease. Ethmoid and maxillary sinus disease as noted above. Reported By:
[2018-04-11] MEDS ORDERED: PROVENTIL NEB TX 0.083% 2.5MG/ 3ML ONE (11:01)
[2018-04-11 11:07] LABS: ALBUMIN 3.2 g/dL (3.4-5.0); CALCIUM 9.4 mg/dL (8.5-10.1); CARBON DIOXIDE 26.9 mmol/L (21-32); CREATININE 1.63 mg/dL (0.70-1.30); TOTAL PROTEIN 6.9 g/dL (6.4-8.2); TSH (3RD GENERATION) 1.985 uIU/mL (0.358-3.74)
[2018-04-11] MEDS ORDERED: NS 1000 ML 1,000 ML IV ONE (11:20)
[2018-04-11] MEDS ORDERED: HumuLIN R IV ONE (12:00)
[2018-04-11] MEDS ORDERED: NS 100 ML IV 100 ML IV ONE (12:02)
[2018-04-11] MEDS ORDERED: HumuLIN R ONE (12:04)
--- NOTE | 2018-04-11 12:15 | RAD ---
HISTORY: Weakness. Status post fall. Study: AP portable chest Comparison: 05/27/2017 Findings: The lungs are clear. The heart size is mildly enlarged electronic cardiac device is present on the left and its single lead appears to be in appropriate position. No acute bony abnormalities are identified. IMPRESSION: 1. Mild cardiomegaly without evidence of failure. 2. I do not see the pleural effusions identified on the prior examination. Reported By:
[2018-04-11] MEDS ORDERED: NS 1000 ML 1,000 ML ONE ×2 (12:24→13:48)
[2018-04-11 13:01] LABS: BILIRUBIN,URINE NEGATIVE (NEGATIVE); BLOOD/HEMOGLOBIN,URINE NEGATIVE (NEGATIVE); GLUCOSE, URINE 4+ (NEGATIVE); KETONES,URINE NEGATIVE (NEGATIVE); LEUKOCYTE ESTERASE ,URINE NEGATIVE (NEGATIVE); NITRITES,URINE NEGATIVE (NEGATIVE); PROTEIN,URINE NEGATIVE (NEGATIVE); UROBILINOGEN,URINE NORMAL (NORMAL)
[2018-04-11 13:03] LABS: APPEARANCE,URINE CLEAR (CLEAR); COLOR,URINE YELLOW (YELLOW)
[2018-04-11] MEDS ORDERED: BACITRACIN ZINC ONE (14:43)
[2018-04-11] MEDS: NS 1000 ML 1,000 ML IV SCH ×2 (16:48→21:12)
[2018-04-11] MEDS ORDERED: SNACK - Diabetic Appropriate PO SCH (20:00)
[2018-04-11] MEDS: SNACK - Diabetic Appropriate PO SCH (21:12)
[2018-04-12] MEDS ORDERED: NYSTATIN POWDER ONE (03:59)
[2018-04-12 05:39] LABS: BASOPHILS # (AUTO) 0.1 X10^3/uL (0.0-0.1); BASOPHILS % (AUTO) 0.8 % (0.2-1.0); EOSINOPHILS # (AUTO) 0.5 x10^3/uL (0.0-0.2); EOSINOPHILS % (AUTO) 4.9 % (0.9-2.9); HEMATOCRIT 34.7 % (42.0-54.0); HEMOGLOBIN 11.8 g/dL (13.5-18.0); LYMPHOCYTES % (AUTO) 10.4 % (21.0-51.0); MEAN CORPUSCULAR HEMOGLOBIN 26.2 pg (27.0-34.0); MEAN CORPUSCULAR VOLUME 76.9 fL (80.0-100.0); MEAN PLATELET VOLUME 9.7 fL (7.4-11.0); MONOCYTES # (AUTO) 0.9 x10^3/uL (0.3-0.8); MONOCYTES % (AUTO) 9.8 % (0.0-13.0); NEUTROPHILS # (AUTO) 7.1 x10^3/uL (2.2-4.8); NEUTROPHILS % (AUTO) 74.1 % (42.0-75.0); PLATELET COUNT 180 X10^3/uL (150.0-450.0); RED BLOOD COUNT 4.51 X10^6/uL (4.7-6.0); RED CELL DISTRIBUTION WIDTH 16.3 % (11.6-16.5); WHITE BLOOD COUNT 9.6 X10^3/uL (3.6-10.0)
[2018-04-12 05:48] LABS: ALANINE AMINOTRANSFERASE 23 Units/L (12-78); ALBUMIN 2.9 g/dL (3.4-5.0); ALKALINE PHOSPHATASE 102 Units/L (46-116); ASPARTATE AMINO TRANSFERASE 21 Units/L (15-37); BLOOD UREA NITROGEN 44 mg/dL (7-18); CALCIUM 8.7 mg/dL (8.5-10.1); CARBON DIOXIDE 27.2 mmol/L (21-32); CHLORIDE 97 mmol/L (98-107); COR CA(FOR HYPOALB) 9.6 mg/dL (8.5-10.1); COR NA(FOR HYPERGLY) 134 mmol/L (136-145); CREATININE 1.38 mg/dL (0.70-1.30); SODIUM 132 mmol/L (136-145); TOTAL PROTEIN 6.2 g/dL (6.4-8.2); eGFR NON BLACK RACES 54 (>60)
[2018-04-12] MEDS: NS 1000 ML 1,000 ML IV SCH ×3 (06:32→16:14)
[2018-04-12] MEDS: NYSTATIN POWDER TOP SCH ×2 (09:03→21:26)
--- NOTE | 2018-04-12 12:34 | DR.H&P ---
H&P - History & Physical for Day of: H&P Date: 04/11/18 - Chief Complaint Chief Complaint: weakness, dizziness - History of Present Illness History of Present Illness: 72 [facility] ER ADMISSION WITH CO DIFFUSE WEAKNESS AND DIZZINESS, WORSE OVER PAST FEW DAYS. PT HAS PMH HX OF COPD, HTN, CAD, DM. PT BLOOD SUGAR IN ER >700. PT HAD CXR WITHOUT ACUTE FINDINGS. PT ADMITTED TO ICU WITH INSULIN DRIP AND TREATMENT OF HYPERGLYCEMIA. - Past Medical History Past Medical History: MS, Coronary Artery Disease, Hypertension, Dyslipidemia, Diabetes, Anxiety, COPD, Asthma, CHF - Past Surgical History Surgical History: Appendectomy, Cholecystectomy - Family History Family Medical History: Diabetes Mellitus, MS, Hypertension - Social History Does patient currently use any type of tobacco product: No Have you used tobacco products in the last 12 months: No Type of Tobacco Use: None Does any household member use tobacco: No Alcohol Use: Rarely Drug Use: None - Medications Home Medications: zolpidem [From Ambien] Allergy (Verified 04/11/18 16:37) - Review of Systems Constitutional: Weakness Eyes: No Symptoms Reported ENT: No Symptoms Reported Respiratory: Cough, Shortness of Breath, Wheezing Cardiovascular: No Symptoms Reported, Edema Gastrointestinal: Nausea Genitourinary: Frequency Musculoskeletal: No Symptoms Reported Skin: No Symptoms Reported Neurological: Weakness, Other (DIZZINESS) - Physical Exam Vital Signs: Temperature 97.8 F Pulse Rate [Apical] 80 Pulse Rate [Left Radial] 81 Pulse Rate 79 Respiratory Rate 20 Blood Pressure [Right Calf] 123/68 Blood Pressure [Right Arm] 120/63 Blood Pressure 113/74 O2 Sat by Pulse Oximetry 100 Oriented: Normal Eyes: Normal Ear: Normal Nose: Normal Throat: Dry Respiratory: Wheezes Throughout, RLL Diminished, LLL Diminished Cardiovascular: Normal, Edema (+BILATERAL LE EDEMA) Auscultation: Bowel Sounds: Normal Palpation: Normal Tenderness: Normal Skin: Normal Musculoskeletal: Back:Lumbar Mood Description: Flat Speech Pattern: Clear, Appropriate, Delayed - Assessment/Plan (1) Diabetic keto-acidosis Qualifiers: Diabetes mellitus type: type 2 Diabetes mellitus complication detail: without coma Qualified Code(s): E11.10 - Type 2 diabetes mellitus with ketoacidosis without coma Status: Acute Plan: ADMIT, ICU CONTINUOUS CARDIAC MONITORING. INSULIN DRIP PER PROTOCOL, BLOOD SUGAR CONTROL. STRICT I & OS, GENTLE IV HYDRATION, REPEAT AM LABS AND SERUM ACETONE, SUPPLEMENTAL O2, VERIFY HOME MEDICAITON (2) COPD (chronic obstructive pulmonary disease) with acute bronchitis Status: Acute (3) CAD (coronary artery disease) Status: Chronic (4) Chronic kidney disease (CKD) Status: Chronic (5) HTN (hypertension) Status: Chronic (6) Hyponatremia Status: Acute - Allergies Allergies/Adverse Reactions: Allergies Allergy/AdvReac Type Severity Reaction Status Date / Time zolpidem [From Ambien] Allergy Verified 04/11/18 16:37
[2018-04-12] MEDS ORDERED: PATIENT'S HOME MEDICATION (Dexlansoprazole [Dexilant] 1 CAP) PO SCH (12:45)
[2018-04-12 12:49] LABS: ABG BASE EXCESS 3.3 mmol/L (-2.0-2.0); ABG HCO3 29.5 mmol/L (22-26)
[2018-04-12] MEDS: ROCEPHIN VIAL 1 GRAM IVP SCH (12:50)
--- NOTE | 2018-04-12 12:50 | PCM.PROG ---
Progress Note - Progress Note for Day of Date of Exam: 04/12/18 - Subjective Subjective: 72 [facility] ER ADMISSION WITH WEAKNESS AND DIZZINESS WITH HYPERGLYCEMIA, BLOOD SUGAR > 700 ON ADMISSION. PT WAS ON INSULIN DRIP SINCE ADMISSION, BS THIS AM LOW TO MID 100'S. REPEAT SERUM ACETONE NEGATIVE, PLAN TO D/C INSULIN DRIP AND CONTINUE WITH SSI. PT HAS DIFFUSE EXP WHEEZES. PT STARTED ON IV ROCEPHIN, SPUTUM CULTURE AND ABG ORDERED THIS AM. WILL RESUME HOME MEDICATION FOR BP AND CHF MANAGEMENT. - Past Medical Family Social History Past Med/Fam/Surg Hx: No changes since H&P Allergies: Allergies zolpidem [From Ambien] Allergy (Verified 04/11/18 16:37) - Review of Systems ROS: No change since H&P - Vital Signs and I&O's Vital Signs: Temperature 97.8 F Pulse Rate [Apical] 80 Pulse Rate [Left Radial] 81 Pulse Rate 79 Respiratory Rate 20 Blood Pressure [Right Calf] 123/68 Blood Pressure [Right Arm] 120/63 Blood Pressure 113/74 O2 Sat by Pulse Oximetry 100 Intake and Output: Intake & Output 04/10/18 04/11/18 04/12/18 04/13/18 11:59 11:59 11:59 11:59 Intake Total 2829 / 2829 Output Total 800 / 800 Balance 2028 - Physical Exam Oriented: Normal Eyes: Normal Ear: Normal Nose: Normal Throat: Dry Respiratory: Diminished, Rhonchi Cardiovascular: Normal, Edema (+BILATERAL LE EDEMA) Auscultation: Bowel Sounds: Normal Tenderness: Normal Skin: Normal Musculoskeletal: Back:Lumbar Mood Description: Flat Speech Pattern: Clear, Appropriate, Delayed - Laboratory and Diagnostics Result Diagrams: 04/12/18 04:36 04/12/18 04:36 Labs: Laboratory WBC 9.6 X10^3/uL (3.6-10.0) 04/12/18 04:36 RBC 4.51 X10^6/uL (4.7-6.0) L 04/12/18 04:36 Hgb 11.8 g/dL (13.5-18.0) L 04/12/18 04:36 Hct 34.7 % (42.0-54.0) L 04/12/18 04:36 MCV 76.9 fL (80.0-100.0) L 04/12/18 04:36 MCH 26.2 pg (27.0-34.0) L 04/12/18 04:36 MCHC 34.0 g/dL (33.0-35.0) 04/12/18 04:36 RDW 16.3 % (11.6-16.5) 04/12/18 04:36 Plt Count 180 X10^3/uL (150.0-450.0) 04/12/18 04:36 MPV 9.7 fL (7.4-11.0) 04/12/18 04:36 Neut % (Auto) 74.1 % (42.0-75.0) 04/12/18 04:36 Lymph % (Auto) 10.4 % (21.0-51.0) L 04/12/18 04:36 [place] % (Auto) 9.8 % (0.0-13.0) 04/12/18 04:36 Eos % (Auto) 4.9 % (0.9-2.9) H 04/12/18 04:36 Baso % (Auto) 0.8 % (0.2-1.0) 04/12/18 04:36 Neut # (Auto) 7.1 x10^3/uL (2.2-4.8) H 04/12/18 04:36 Lymph # (Auto) 1.0 X10^3/uL (1.3-2.9) L 04/12/18 04:36 [place] # (Auto) 0.9 x10^3/uL (0.3-0.8) H 04/12/18 04:36 Eos # (Auto) 0.5 x10^3/uL (0.0-0.2) H 04/12/18 04:36 Baso # (Auto) 0.1 X10^3/uL (0.0-0.1) 04/12/18 04:36 Absolute Nucleated RBC 0.0 /100WBC 04/12/18 04:36 Sodium 132 mmol/L (136-145) L 04/12/18 04:36 Corrected Sodium 134 mmol/L (136-145) L 04/12/18 04:36 Potassium 4.0 mmol/L (3.5-5.1) 04/12/18 04:36 Chloride 97 mmol/L (98-107) L 04/12/18 04:36 Carbon Dioxide 27.2 mmol/L (21-32) 04/12/18 04:36 BUN 44 mg/dL (7-18) H 04/12/18 04:36 Creatinine 1.38 mg/dL (0.70-1.30) H 04/12/18 04:36 Est GFR (MDRD) Af Amer > 60 (>60) 04/12/18 04:36 Est GFR (MDRD) Non-Af 54 (>60) L 04/12/18 04:36 Glucose 169 mg/dL (65-99) H 04/12/18 04:36 POC Glucose (mg/dL) 147 mg/dL (65-99) H 04/12/18 10:57 Calcium 8.7 mg/dL (8.5-10.1) 04/12/18 04:36 Corrected Calcium 9.6 mg/dL (8.5-10.1) 04/12/18 04:36 Total Bilirubin 0.50 mg/dL (0.2-1.0) 04/12/18 04:36 AST 21 Units/L (15-37) 04/12/18 04:36 ALT 23 Units/L (12-78) 04/12/18 04:36 Alkaline Phosphatase 102 Units/L (46-116) 04/12/18 04:36 Total Protein 6.2 g/dL (6.4-8.2) L 04/12/18 04:36 Albumin 2.9 g/dL (3.4-5.0) L 04/12/18 04:36 Globulin 3.3 g/dL (2.5-4.5) 04/12/18 04:36 Albumin/Globulin Ratio 0.9 Ratio (1.1-2.1) L 04/12/18 04:36 TSH 3rd Generation 1.985 uIU/mL (0.358-3.74) 04/11/18 10:17 Specimen Type Catherized urine 04/11/18 12:46 Urine Color Yellow (YELLOW) 04/11/18 12:46 Urine Appearance Clear (CLEAR) 04/11/18 12:46 Urine pH 5.0 (5.0 - 8.0) 04/11/18 12:46 Ur Specific [place] 1.010 (1.000-1.030) 04/11/18 12:46 Urine Protein Negative (NEGATIVE) 04/11/18 12:46 Urine Glucose (UA) 4+ (NEGATIVE) 04/11/18 12:46 Urine Ketones Negative (NEGATIVE) 04/11/18 12:46 Urine Occult Blood Negative (NEGATIVE) 04/11/18 12:46 Urine Nitrite Negative (NEGATIVE) 04/11/18 12:46 Urine Bilirubin Negative (NEGATIVE) 04/11/18 12:46 Urine Urobilinogen Normal (NORMAL) 04/11/18 12:46 Ur Leukocyte Esterase Negative (NEGATIVE) 04/11/18 12:46 Acetone, Semi-Quant Negative (NEGATIVE) 04/12/18 12:03 - Plan (1) Diabetic keto-acidosis Status: Acute Qualifiers: Diabetes mellitus type: type 2 Diabetes mellitus complication detail: without coma Qualified Code(s): E11.10 - Type 2 diabetes mellitus with ketoacidosis without coma Plan: CONTINUOUS CARDIAC MONITORING. INSULIN DRIP D/C'D, REPEAT SERUM ACETONE NEGATIVE THIS AM. BLOOD SUGAR CONTROL, SSI. STRICT I & OS, GENTLE IV HYDRATION, REPEAT AM LABS, SUPPLEMENTAL O2, VERIFY HOME MEDICAITON (2) COPD (chronic obstructive pulmonary disease) with acute bronchitis Status: Acute Plan: RESP THERAPY, ABG, SUPPLEMENTAL O2 (3) CAD (coronary artery disease) Status: Chronic (4) Chronic kidney disease (CKD) Status: Chronic (5) HTN (hypertension) Status: Chronic (6) Hyponatremia Status: Acute
[2018-04-12 12:51] LABS: ABG ALLEN TEST POS
[2018-04-12] MEDS: PROTONIX INJ 40 MG VIAL IVP SCH (12:59)
[2018-04-12] MEDS ORDERED: NS 250 ML IV 250 ML IV SCH (13:00)
[2018-04-12] MEDS: LASIX PO SCH (13:01)
[2018-04-12] MEDS: PROzac PO SCH (13:01)
[2018-04-12] MEDS: PLAVIX PO SCH (13:01)
[2018-04-12] MEDS: COREG TAB 12.5 MG PO SCH ×2 (13:01→21:25)
[2018-04-12] MEDS: ASPIRIN EC 81 MG PO SCH (13:01)
--- NOTE | 2018-04-12 14:27 | RAD ---
Examination: AP chest History: Follow up Comparison 04/11/2018 Findings: Continued cardiomegaly with stable position of AICD. The lungs are essentially clear although patient rotation results in obscuration of a significant portion of the right lower lung appear Impression: Stable cardiomegaly. No acute pulmonary or pleural lesion noted. Reported By:
[2018-04-12] MEDS: HumuLIN R SC PRN ×2 (16:14→21:55)
[2018-04-12] MEDS: SNACK - Diabetic Appropriate PO SCH (20:30)
[2018-04-12] MEDS: LIPITOR TAB 40 MG PO SCH (21:25)
[2018-04-12] MEDS: THEO-DUR TAB 300 MG PO SCH (21:25)
[2018-04-12] MEDS: DUONEB 0.5 MG/3 MG NEB SCH (21:45)
[2018-04-13 05:53] LABS: BASOPHILS % (AUTO) 0.8 % (0.2-1.0); EOSINOPHILS # (AUTO) 0.4 x10^3/uL (0.0-0.2); EOSINOPHILS % (AUTO) 6.4 % (0.9-2.9); HEMATOCRIT 34.6 % (42.0-54.0); HEMOGLOBIN 11.6 g/dL (13.5-18.0); LYMPHOCYTES # (AUTO) 0.7 X10^3/uL (1.3-2.9); LYMPHOCYTES % (AUTO) 12.2 % (21.0-51.0); MEAN CORPUSCULAR HEMOGLOBIN 26.3 pg (27.0-34.0); MEAN CORPUSCULAR HGB CONC 33.4 g/dL (33.0-35.0); MEAN CORPUSCULAR VOLUME 78.6 fL (80.0-100.0); MEAN PLATELET VOLUME 9.6 fL (7.4-11.0); MONOCYTES # (AUTO) 0.7 x10^3/uL (0.3-0.8); MONOCYTES % (AUTO) 12.1 % (0.0-13.0); NEUTROPHILS # (AUTO) 4.2 x10^3/uL (2.2-4.8); NEUTROPHILS % (AUTO) 68.5 % (42.0-75.0); PLATELET COUNT 152 X10^3/uL (150.0-450.0); RED BLOOD COUNT 4.41 X10^6/uL (4.7-6.0); RED CELL DISTRIBUTION WIDTH 16.4 % (11.6-16.5); WHITE BLOOD COUNT 6.1 X10^3/uL (3.6-10.0)
[2018-04-13] MEDS: HumuLIN R SC PRN ×4 (05:56→20:57)
[2018-04-13 06:08] LABS: ALANINE AMINOTRANSFERASE 22 Units/L (12-78); ALBUMIN 2.5 g/dL (3.4-5.0); ALKALINE PHOSPHATASE 83 Units/L (46-116); ASPARTATE AMINO TRANSFERASE 16 Units/L (15-37); BLOOD UREA NITROGEN 28 mg/dL (7-18); CALCIUM 8.3 mg/dL (8.5-10.1); CARBON DIOXIDE 28.4 mmol/L (21-32); CHLORIDE 103 mmol/L (98-107); COR CA(FOR HYPOALB) 9.5 mg/dL (8.5-10.1); COR NA(FOR HYPERGLY) 139 mmol/L (136-145); CREATININE 1.07 mg/dL (0.70-1.30); SODIUM 137 mmol/L (136-145); TOTAL PROTEIN 5.7 g/dL (6.4-8.2); eGFR NON BLACK RACES > 60 (>60)
[2018-04-13] MEDS: NS 1000 ML 1,000 ML IV SCH ×4 (07:24→17:13)
[2018-04-13] MEDS: DUONEB 0.5 MG/3 MG NEB SCH ×4 (08:20→20:53)
[2018-04-13] MEDS: THEO-DUR TAB 300 MG PO SCH ×2 (08:52→20:47)
[2018-04-13] MEDS: PROTONIX INJ 40 MG VIAL IVP SCH (08:52)
[2018-04-13] MEDS: PROzac PO SCH (08:53)
[2018-04-13] MEDS: LASIX PO SCH (08:53)
[2018-04-13] MEDS: PLAVIX PO SCH (08:53)
[2018-04-13] MEDS: ASPIRIN EC 81 MG PO SCH (08:53)
[2018-04-13] MEDS: COREG TAB 12.5 MG PO SCH ×2 (08:53→20:47)
[2018-04-13] MEDS: NYSTATIN POWDER TOP SCH ×2 (08:54→20:48)
[2018-04-13] MEDS: ROCEPHIN VIAL 1 GRAM IVP SCH (08:59)
[2018-04-13 11:20] LABS: ABG ALLEN TEST POS; ABG BASE EXCESS 3.3 mmol/L (-2.0-2.0); ABG HCO3 27.8 mmol/L (22-26)
[2018-04-13] MEDS: NORCO 5/325 MG TAB PO PRN (15:44)
[2018-04-13] MEDS: ENTRESTO 24/26 MG TAB PO SCH ×2 (15:44→20:47)
[2018-04-13] MEDS: SNACK - Diabetic Appropriate PO SCH (20:00)
[2018-04-13] MEDS: ATIVAN TAB 0.5 MG PO PRN (20:47)
[2018-04-13] MEDS: LIPITOR TAB 40 MG PO SCH (20:47)
[2018-04-14] MEDS: NORCO 5/325 MG TAB PO PRN ×2 (02:25→20:34)
[2018-04-14 05:27] LABS: BASOPHILS % (AUTO) 0.9 % (0.2-1.0); EOSINOPHILS # (AUTO) 0.4 x10^3/uL (0.0-0.2); EOSINOPHILS % (AUTO) 7.1 % (0.9-2.9); HEMATOCRIT 32.6 % (42.0-54.0); HEMOGLOBIN 11.1 g/dL (13.5-18.0); LYMPHOCYTES # (AUTO) 0.8 X10^3/uL (1.3-2.9); LYMPHOCYTES % (AUTO) 14.5 % (21.0-51.0); MEAN CORPUSCULAR HEMOGLOBIN 26.5 pg (27.0-34.0); MEAN CORPUSCULAR VOLUME 77.9 fL (80.0-100.0); MEAN PLATELET VOLUME 9.7 fL (7.4-11.0); MONOCYTES # (AUTO) 0.6 x10^3/uL (0.3-0.8); MONOCYTES % (AUTO) 11.3 % (0.0-13.0); NEUTROPHILS # (AUTO) 3.6 x10^3/uL (2.2-4.8); NEUTROPHILS % (AUTO) 66.2 % (42.0-75.0); PLATELET COUNT 133 X10^3/uL (150.0-450.0); RED BLOOD COUNT 4.19 X10^6/uL (4.7-6.0); RED CELL DISTRIBUTION WIDTH 16.2 % (11.6-16.5); WHITE BLOOD COUNT 5.5 X10^3/uL (3.6-10.0)
[2018-04-14 05:53] LABS: ALANINE AMINOTRANSFERASE 16 Units/L (12-78); ALBUMIN 2.2 g/dL (3.4-5.0); ALKALINE PHOSPHATASE 83 Units/L (46-116); ASPARTATE AMINO TRANSFERASE 17 Units/L (15-37); BLOOD UREA NITROGEN 22 mg/dL (7-18); CARBON DIOXIDE 24.6 mmol/L (21-32); CHLORIDE 103 mmol/L (98-107); COR CA(FOR HYPOALB) 9.4 mg/dL (8.5-10.1); COR NA(FOR HYPERGLY) 139 mmol/L (136-145); CREATININE 0.99 mg/dL (0.70-1.30); SODIUM 136 mmol/L (136-145); TOTAL PROTEIN 5.3 g/dL (6.4-8.2); eGFR NON BLACK RACES > 60 (>60)
[2018-04-14] MEDS: HumuLIN R SC PRN ×4 (06:07→20:48)
[2018-04-14] MEDS: DUONEB 0.5 MG/3 MG NEB SCH ×4 (09:17→20:16)
[2018-04-14] MEDS: NS 1000 ML 1,000 ML IV SCH ×3 (09:24→16:26)
[2018-04-14] MEDS: LASIX PO SCH (09:29)
[2018-04-14] MEDS: COREG TAB 12.5 MG PO SCH ×2 (09:29→20:34)
[2018-04-14] MEDS: PROzac PO SCH (09:29)
[2018-04-14] MEDS: ASPIRIN EC 81 MG PO SCH (09:29)
[2018-04-14] MEDS: THEO-DUR TAB 300 MG PO SCH ×2 (09:29→20:33)
[2018-04-14] MEDS: ENTRESTO 24/26 MG TAB PO SCH ×2 (09:29→20:33)
[2018-04-14] MEDS: PROTONIX INJ 40 MG VIAL IVP SCH (09:29)
[2018-04-14] MEDS: PLAVIX PO SCH (09:30)
[2018-04-14] MEDS: NYSTATIN POWDER TOP SCH ×2 (09:30→20:35)
[2018-04-14] MEDS: ROCEPHIN VIAL 1 GRAM IVP SCH (09:30)
[2018-04-14] MEDS: ATIVAN TAB 0.5 MG PO PRN (20:33)
[2018-04-14] MEDS: LIPITOR TAB 40 MG PO SCH (20:34)
[2018-04-14] MEDS: SNACK - Diabetic Appropriate PO SCH (20:34)
[2018-04-15 04:59] LABS: BASOPHILS % (AUTO) 0.9 % (0.2-1.0); EOSINOPHILS # (AUTO) 0.4 x10^3/uL (0.0-0.2); EOSINOPHILS % (AUTO) 8.8 % (0.9-2.9); HEMATOCRIT 32.3 % (42.0-54.0); LYMPHOCYTES # (AUTO) 0.8 X10^3/uL (1.3-2.9); LYMPHOCYTES % (AUTO) 17.4 % (21.0-51.0); MEAN CORPUSCULAR HEMOGLOBIN 26.5 pg (27.0-34.0); MEAN CORPUSCULAR VOLUME 77.9 fL (80.0-100.0); MEAN PLATELET VOLUME 9.5 fL (7.4-11.0); MONOCYTES # (AUTO) 0.5 x10^3/uL (0.3-0.8); MONOCYTES % (AUTO) 11.3 % (0.0-13.0); NEUTROPHILS # (AUTO) 2.9 x10^3/uL (2.2-4.8); NEUTROPHILS % (AUTO) 61.6 % (42.0-75.0); PLATELET COUNT 130 X10^3/uL (150.0-450.0); RED BLOOD COUNT 4.15 X10^6/uL (4.7-6.0); RED CELL DISTRIBUTION WIDTH 16.4 % (11.6-16.5); WHITE BLOOD COUNT 4.7 X10^3/uL (3.6-10.0)
[2018-04-15 05:09] LABS: ALANINE AMINOTRANSFERASE 17 Units/L (12-78); ALBUMIN 2.3 g/dL (3.4-5.0); ALKALINE PHOSPHATASE 84 Units/L (46-116); ASPARTATE AMINO TRANSFERASE 13 Units/L (15-37); BLOOD UREA NITROGEN 20 mg/dL (7-18); CALCIUM 8.1 mg/dL (8.5-10.1); CARBON DIOXIDE 29.5 mmol/L (21-32); CHLORIDE 103 mmol/L (98-107); COR CA(FOR HYPOALB) 9.5 mg/dL (8.5-10.1); COR NA(FOR HYPERGLY) 141 mmol/L (136-145); CREATININE 1.08 mg/dL (0.70-1.30); SODIUM 137 mmol/L (136-145); TOTAL PROTEIN 5.5 g/dL (6.4-8.2); eGFR NON BLACK RACES > 60 (>60)
[2018-04-15] MEDS: HumuLIN R SC PRN ×4 (05:55→21:10)
[2018-04-15] MEDS: DUONEB 0.5 MG/3 MG NEB SCH ×4 (08:11→20:47)
[2018-04-15] MEDS: ROCEPHIN VIAL 1 GRAM IVP SCH (08:47)
[2018-04-15] MEDS: PROzac PO SCH (08:47)
[2018-04-15] MEDS: COREG TAB 12.5 MG PO SCH ×2 (08:47→20:53)
[2018-04-15] MEDS: PROTONIX INJ 40 MG VIAL IVP SCH (08:47)
[2018-04-15] MEDS: ASPIRIN EC 81 MG PO SCH (08:47)
[2018-04-15] MEDS: THEO-DUR TAB 300 MG PO SCH ×2 (08:47→20:54)
[2018-04-15] MEDS: NS 1000 ML 1,000 ML IV SCH ×3 (08:48→17:44)
[2018-04-15] MEDS: LASIX PO SCH (08:48)
[2018-04-15] MEDS: PLAVIX PO SCH (08:50)
[2018-04-15] MEDS: ENTRESTO 24/26 MG TAB PO SCH ×2 (09:03→20:54)
[2018-04-15] MEDS: NYSTATIN POWDER TOP SCH ×2 (10:42→21:00)
[2018-04-15] MEDS: LOVENOX INJ 40 MG SYR SC SCH (12:12)
[2018-04-15] MEDS: SNACK - Diabetic Appropriate PO SCH (20:30)
[2018-04-15] MEDS: LIPITOR TAB 40 MG PO SCH (20:54)
[2018-04-15] MEDS: ATIVAN TAB 0.5 MG PO PRN (20:55)
[2018-04-15] MEDS: ZANAFLEX PO PRN (20:57)
[2018-04-16] MEDS: NS 1000 ML 1,000 ML IV SCH ×3 (05:17→20:40)
[2018-04-16] MEDS: HumuLIN R SC PRN ×5 (05:30→20:50)
[2018-04-16 06:08] LABS: BASOPHILS # (AUTO) 0.1 X10^3/uL (0.0-0.1); BASOPHILS % (AUTO) 0.9 % (0.2-1.0); EOSINOPHILS # (AUTO) 0.6 x10^3/uL (0.0-0.2); EOSINOPHILS % (AUTO) 10.4 % (0.9-2.9); HEMATOCRIT 33.5 % (42.0-54.0); HEMOGLOBIN 11.4 g/dL (13.5-18.0); LYMPHOCYTES % (AUTO) 19.2 % (21.0-51.0); MEAN CORPUSCULAR HEMOGLOBIN 26.2 pg (27.0-34.0); MEAN CORPUSCULAR HGB CONC 33.9 g/dL (33.0-35.0); MEAN CORPUSCULAR VOLUME 77.2 fL (80.0-100.0); MEAN PLATELET VOLUME 9.8 fL (7.4-11.0); MONOCYTES # (AUTO) 0.6 x10^3/uL (0.3-0.8); MONOCYTES % (AUTO) 10.9 % (0.0-13.0); NEUTROPHILS # (AUTO) 3.2 x10^3/uL (2.2-4.8); NEUTROPHILS % (AUTO) 58.6 % (42.0-75.0); PLATELET COUNT 137 X10^3/uL (150.0-450.0); RED BLOOD COUNT 4.34 X10^6/uL (4.7-6.0); RED CELL DISTRIBUTION WIDTH 16.3 % (11.6-16.5); WHITE BLOOD COUNT 5.4 X10^3/uL (3.6-10.0)
[2018-04-16 06:19] LABS: ALANINE AMINOTRANSFERASE 19 Units/L (12-78); ALBUMIN 2.4 g/dL (3.4-5.0); ALKALINE PHOSPHATASE 78 Units/L (46-116); ASPARTATE AMINO TRANSFERASE 19 Units/L (15-37); BLOOD UREA NITROGEN 16 mg/dL (7-18); CALCIUM 8.5 mg/dL (8.5-10.1); CARBON DIOXIDE 28.5 mmol/L (21-32); CHLORIDE 103 mmol/L (98-107); COR CA(FOR HYPOALB) 9.8 mg/dL (8.5-10.1); COR NA(FOR HYPERGLY) 140 mmol/L (136-145); CREATININE 0.95 mg/dL (0.70-1.30); SODIUM 138 mmol/L (136-145); TOTAL PROTEIN 5.7 g/dL (6.4-8.2); eGFR NON BLACK RACES > 60 (>60)
[2018-04-16] MEDS: DUONEB 0.5 MG/3 MG NEB SCH ×4 (08:31→21:42)
[2018-04-16] MEDS: PLAVIX PO SCH (09:12)
[2018-04-16] MEDS: ROCEPHIN VIAL 1 GRAM IVP SCH (09:13)
[2018-04-16] MEDS: PROzac PO SCH (09:13)
[2018-04-16] MEDS: COREG TAB 12.5 MG PO SCH ×2 (09:13→20:41)
[2018-04-16] MEDS: LASIX PO SCH (09:13)
[2018-04-16] MEDS: THEO-DUR TAB 300 MG PO SCH ×2 (09:13→20:43)
[2018-04-16] MEDS: ASPIRIN EC 81 MG PO SCH (09:13)
[2018-04-16] MEDS: ENTRESTO 24/26 MG TAB PO SCH ×2 (09:14→20:42)
[2018-04-16] MEDS: PROTONIX INJ 40 MG VIAL IVP SCH (09:15)
[2018-04-16] MEDS: LOVENOX INJ 40 MG SYR SC SCH (09:15)
[2018-04-16] MEDS: NYSTATIN POWDER TOP SCH ×2 (10:15→20:42)
--- NOTE | 2018-04-16 11:49 | RAD ---
History: Shortness of breath Study: Portable AP chest Comparison: April 12 Findings: There is mild cardiomegaly as before with an intact defibrillator wire via the left subclavian vein. The lungs are grossly clear. There is no edema or effusion. Impression: Unchanged mild cardiomegaly, no evidence for acute disease. Reported By:
[2018-04-16] MEDS: SNACK - Diabetic Appropriate PO SCH (20:00)
[2018-04-16] MEDS: ZANAFLEX PO PRN (20:41)
[2018-04-16] MEDS: LIPITOR TAB 40 MG PO SCH (20:41)
[2018-04-16] MEDS: ATIVAN TAB 0.5 MG PO PRN (20:51)
[2018-04-17] MEDS: NS 1000 ML 1,000 ML IV SCH ×3 (01:40→22:12)
[2018-04-17] MEDS: HumuLIN R SC PRN ×4 (05:43→21:24)
[2018-04-17 06:10] LABS: BASOPHILS # (AUTO) 0.1 X10^3/uL (0.0-0.1); EOSINOPHILS # (AUTO) 0.4 x10^3/uL (0.0-0.2); EOSINOPHILS % (AUTO) 8.3 % (0.9-2.9); HEMATOCRIT 31.8 % (42.0-54.0); HEMOGLOBIN 10.8 g/dL (13.5-18.0); LYMPHOCYTES # (AUTO) 0.8 X10^3/uL (1.3-2.9); LYMPHOCYTES % (AUTO) 14.7 % (21.0-51.0); MEAN CORPUSCULAR HEMOGLOBIN 26.3 pg (27.0-34.0); MEAN CORPUSCULAR VOLUME 77.3 fL (80.0-100.0); MEAN PLATELET VOLUME 9.4 fL (7.4-11.0); MONOCYTES # (AUTO) 0.5 x10^3/uL (0.3-0.8); MONOCYTES % (AUTO) 8.8 % (0.0-13.0); NEUTROPHILS # (AUTO) 3.5 x10^3/uL (2.2-4.8); NEUTROPHILS % (AUTO) 67.2 % (42.0-75.0); PLATELET COUNT 125 X10^3/uL (150.0-450.0); RED BLOOD COUNT 4.11 X10^6/uL (4.7-6.0); RED CELL DISTRIBUTION WIDTH 16.4 % (11.6-16.5); WHITE BLOOD COUNT 5.2 X10^3/uL (3.6-10.0)
[2018-04-17 06:22] LABS: ALANINE AMINOTRANSFERASE 21 Units/L (12-78); ALBUMIN 2.2 g/dL (3.4-5.0); ALKALINE PHOSPHATASE 82 Units/L (46-116); ASPARTATE AMINO TRANSFERASE 17 Units/L (15-37); BLOOD UREA NITROGEN 16 mg/dL (7-18); CALCIUM 8.3 mg/dL (8.5-10.1); CARBON DIOXIDE 28.6 mmol/L (21-32); CHLORIDE 102 mmol/L (98-107); COR CA(FOR HYPOALB) 9.7 mg/dL (8.5-10.1); COR NA(FOR HYPERGLY) 139 mmol/L (136-145); CREATININE 0.97 mg/dL (0.70-1.30); SODIUM 135 mmol/L (136-145); TOTAL PROTEIN 5.2 g/dL (6.4-8.2); eGFR NON BLACK RACES > 60 (>60)
[2018-04-17] MEDS: DUONEB 0.5 MG/3 MG NEB SCH ×4 (08:20→20:40)
[2018-04-17] MEDS: LOVENOX INJ 40 MG SYR SC SCH (09:19)
[2018-04-17] MEDS: PROTONIX INJ 40 MG VIAL IVP SCH (09:20)
[2018-04-17] MEDS: COREG TAB 12.5 MG PO SCH ×2 (09:20→20:04)
[2018-04-17] MEDS: THEO-DUR TAB 300 MG PO SCH ×2 (09:20→20:03)
[2018-04-17] MEDS: PROzac PO SCH (09:20)
[2018-04-17] MEDS: ROCEPHIN VIAL 1 GRAM IVP SCH (09:20)
[2018-04-17] MEDS: ASPIRIN EC 81 MG PO SCH (09:20)
[2018-04-17] MEDS: ENTRESTO 24/26 MG TAB PO SCH ×2 (09:21→20:04)
[2018-04-17] MEDS: PLAVIX PO SCH (09:21)
[2018-04-17] MEDS: LASIX PO SCH (09:21)
[2018-04-17] MEDS: NYSTATIN POWDER TOP SCH ×2 (09:22→21:06)
[2018-04-17] MEDS ORDERED: ALLEGRA ONE (12:05)
[2018-04-17] MEDS: ALLEGRA PO SCH (12:18)
[2018-04-17] MEDS: DEBROX AFF EAR SCH ×2 (12:55→20:05)
[2018-04-17] MEDS: [UNRECOGNIZED DRUG - OTHER] AFF EAR SCH ×2 (12:55→20:05)
--- NOTE | 2018-04-17 13:35 | CT ---
CTA OF THE ABDOMEN AND PELVIS AND BILATERAL LOWER EXTREMITY RUNOFF WITHOUT AND WITH CONTRAST CLINICAL INDICATION: Nonhealing wound of left foot TECHNIQUE: Written informed consent was obtained. Non-gated spiral axial images of the lower thorax, abdomen, pelvis and lower extremities were obtained with nonionic intravenous contrast. 3D reconstructions were performed. Dose reduction techniques including Automated Exposure Control (AEC) and adjustment of mA and kV were utlized. COMPARISON: 05/27/2017 FINDINGS: VASCULAR: Abdominal Aorta: Severe atherosclerotic disease without stenosis or aneurysm Celiac [place]: No significant stenosis. Superior Mesenteric Artery: Marked stenosis of the proximal SMA. Renal Arteries: Duplicated renal arteries bilaterally with mild to moderate stenosis at the origins bilaterally. Inferior Mesenteric Artery: No significant stenosis. RIGHT PELVIS/LOWER EXTREMITY: Right Common Iliac Artery: No significant stenosis. Right Internal Iliac Artery: No significant stenosis. Right External Iliac Artery: No significant stenosis. Right Common Femoral Artery: No significant stenosis. Right Profunda Femoris Artery: No significant stenosis. Right Superficial Femoral Artery: Approximately 50% stenosis of the proximal right SFA. Approximately 50% focal stenosis of the distal right SFA. Right Popliteal Artery: No significant stenosis. Right Anterior Tibial Artery: No significant stenosis. Crosses the ankle to supply the dorsalis pedis artery. Right Tibioperoneal Trunk: No significant stenosis. Right Posterior Tibial Artery: No significant stenosis. Crosses the ankle to supply the plantar arch. Right Peroneal Artery: No significant stenosis. LEFT PELVIS/LOWER EXTREMITY: Left Common Iliac Artery: No significant stenosis. Left Internal Iliac Artery: No significant stenosis. Left External Iliac Artery: No significant stenosis. Left Common Femoral Artery: Focal greater than 80% stenosis of the left common femoral artery on series 7, image 124. Left Profunda Femoris Artery: No significant stenosis. Left Superficial Femoral Artery: No significant stenosis. Left Popliteal Artery: No significant stenosis. Left Anterior Tibial Artery: No significant stenosis. Crosses the ankle to supply the dorsalis pedis artery. Left Tibioperoneal Trunk: No significant stenosis. Left Posterior Tibial Artery: No significant stenosis. Crosses the ankle to supply the plantar arch. Left Peroneal Artery: No significant stenosis. Lung bases: Small right pleural effusion. Abdomen without: Gallbladder absent. No renal stones. Abdomen with: Liver and spleen are normal in size, enhancement characteristics and contour. No focal lesions. The portal vein is patent. No ductal dilitation. Gallbladder absent. Atrophic pancreas. Adrenal glands are normal. Kidneys enhance symmetrically without hydronephrosis. No bowel obstruction or inflammation. Extensive diverticulosis without focal diverticular inflammation No abnormal appearing mesenteric or retroperitoneal lymph nodes. No free fluid or fluid collections. Pelvis without: No distal ureteral stones or bladder stones. Pelvis with: The bladder is normal in appearance. Prostate not enlarged. No free fluid or abnormal pelvic lymph nodes. No aggressive osseous lesions. IMPRESSION: 1. Focal greater than 80% stenosis of the left common femoral artery. 2. 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 3. Lesser degrees of stenosis as above. Reported By:
[2018-04-17] MEDS: LIPITOR TAB 40 MG PO SCH (20:03)
[2018-04-17] MEDS: ATIVAN TAB 0.5 MG PO PRN (21:05)
[2018-04-17] MEDS: NORCO 5/325 MG TAB PO PRN (21:05)
[2018-04-17] MEDS: ZANAFLEX PO PRN (21:05)
[2018-04-17] MEDS: SNACK - Diabetic Appropriate PO SCH (21:25)
[2018-04-18] MEDS: NS 1000 ML 1,000 ML IV SCH ×3 (02:09→11:50)
[2018-04-18 05:13] LABS: BASOPHILS % (AUTO) 0.8 % (0.2-1.0); EOSINOPHILS # (AUTO) 0.5 x10^3/uL (0.0-0.2); EOSINOPHILS % (AUTO) 9.3 % (0.9-2.9); HEMATOCRIT 30.2 % (42.0-54.0); HEMOGLOBIN 10.2 g/dL (13.5-18.0); LYMPHOCYTES # (AUTO) 0.8 X10^3/uL (1.3-2.9); LYMPHOCYTES % (AUTO) 15.6 % (21.0-51.0); MEAN CORPUSCULAR HEMOGLOBIN 26.4 pg (27.0-34.0); MEAN CORPUSCULAR HGB CONC 33.8 g/dL (33.0-35.0); MEAN CORPUSCULAR VOLUME 78.3 fL (80.0-100.0); MEAN PLATELET VOLUME 9.5 fL (7.4-11.0); MONOCYTES # (AUTO) 0.5 x10^3/uL (0.3-0.8); MONOCYTES % (AUTO) 10.3 % (0.0-13.0); NEUTROPHILS # (AUTO) 3.1 x10^3/uL (2.2-4.8); PLATELET COUNT 120 X10^3/uL (150.0-450.0); RED BLOOD COUNT 3.85 X10^6/uL (4.7-6.0); RED CELL DISTRIBUTION WIDTH 16.6 % (11.6-16.5); WHITE BLOOD COUNT 4.9 X10^3/uL (3.6-10.0)
[2018-04-18 05:26] LABS: ALANINE AMINOTRANSFERASE 23 Units/L (12-78); ALBUMIN 2.2 g/dL (3.4-5.0); ALKALINE PHOSPHATASE 80 Units/L (46-116); ASPARTATE AMINO TRANSFERASE 19 Units/L (15-37); BLOOD UREA NITROGEN 21 mg/dL (7-18); CALCIUM 8.4 mg/dL (8.5-10.1); CHLORIDE 102 mmol/L (98-107); COR CA(FOR HYPOALB) 9.8 mg/dL (8.5-10.1); COR NA(FOR HYPERGLY) 139 mmol/L (136-145); SODIUM 135 mmol/L (136-145); eGFR NON BLACK RACES > 60 (>60)
[2018-04-18] MEDS: HumuLIN R SC PRN ×3 (06:17→16:58)
[2018-04-18] MEDS ORDERED: ALLEGRA ONE (07:59)
[2018-04-18] MEDS: LOVENOX INJ 40 MG SYR SC SCH (08:10)
[2018-04-18] MEDS: ROCEPHIN VIAL 1 GRAM IVP SCH (08:12)
[2018-04-18] MEDS: PROTONIX INJ 40 MG VIAL IVP SCH (08:12)
[2018-04-18] MEDS: THEO-DUR TAB 300 MG PO SCH (08:12)
[2018-04-18] MEDS: ALLEGRA PO SCH (08:13)
[2018-04-18] MEDS: COREG TAB 12.5 MG PO SCH (08:13)
[2018-04-18] MEDS: LASIX PO SCH (08:13)
[2018-04-18] MEDS: ASPIRIN EC 81 MG PO SCH (08:13)
[2018-04-18] MEDS: ENTRESTO 24/26 MG TAB PO SCH (08:13)
[2018-04-18] MEDS: PLAVIX PO SCH (08:13)
[2018-04-18] MEDS: PROzac PO SCH (08:13)
[2018-04-18] MEDS: [UNRECOGNIZED DRUG - OTHER] AFF EAR SCH (08:14)
[2018-04-18] MEDS: NYSTATIN POWDER TOP SCH (08:14)
[2018-04-18] MEDS: DEBROX AFF EAR SCH (08:14)
[2018-04-18] MEDS: DUONEB 0.5 MG/3 MG NEB SCH (08:49)
--- NOTE | 2018-04-18 13:15 | PCM.PROG ---
Progress Note - Progress Note for Day of Date of Exam: 04/13/18 - Subjective Subjective: 72 WM ER ADMISSION WITH WEAKNESS AND DIZZINESS WITH HYPERGLYCEMIA, BLOOD SUGAR > 700 ON ADMISSION. PT WAS ON INSULIN DRIP SINCE ADMISSION, BS THIS AM LOW TO MID 100'S. REPEAT SERUM ACETONE NEGATIVE, NO LONGER ON INSULIN DRIP, CONTINUE WITH SSI. PT HAS DIFFUSE EXP WHEEZES. PT ON IV ROCEPHIN, CONTINUE WITH BLOOD PRESSURE CONTROL AND MONITOR I & OS DUE TO HX CHF. [id number], CREAT 1.07 THIS AM - Past Medical Family Social History Past Med/Fam/Surg Hx: No changes since H&P Allergies: Allergies zolpidem [From Ambien] Allergy (Verified 04/11/18 16:37) - Review of Systems ROS: No change since H&P - Vital Signs and I&O's Vital Signs: Temperature 98.0 F Pulse Rate [Apical] 72 Pulse Rate [Left Radial] 79 Pulse Rate 80 Respiratory Rate 20 Blood Pressure [Left Arm] 131/61 Blood Pressure [Right Calf] 102/58 Blood Pressure [Right Arm] 150/63 Blood Pressure 127/59 O2 Sat by Pulse Oximetry 98 Intake and Output: Intake & Output 04/16/18 04/17/18 04/18/18 04/19/18 11:59 11:59 11:59 11:59 Intake Total 2181 / 2181 2437 / 2437 2420 / 2420 Output Total 2550 / 2550 850 / 850 Balance -369 / -369 1587 / 1587 2420 / 2420 - Physical Exam Oriented: Normal Eyes: Normal Ear: Normal Nose: Normal Throat: Dry Respiratory: Diminished, Rhonchi Cardiovascular: Normal, Edema (+BILATERAL LE EDEMA) Auscultation: Bowel Sounds: Normal Tenderness: Normal Skin: Normal Musculoskeletal: Back:Lumbar Mood Description: Flat Speech Pattern: Clear, Appropriate - Laboratory and Diagnostics Result Diagrams: 04/18/18 04:40 04/18/18 04:40 Labs: 04/12/18 17:03 Sputum - Expectorated Sputum Sputum Culture - Final 04/12/18 17:03 Sputum - Expectorated Sputum - Final Laboratory WBC 4.9 X10^3/uL (3.6-10.0) 04/18/18 04:40 RBC 3.85 X10^6/uL (4.7-6.0) L 04/18/18 04:40 Hgb 10.2 g/dL (13.5-18.0) L 04/18/18 04:40 Hct 30.2 % (42.0-54.0) L 04/18/18 04:40 MCV 78.3 fL (80.0-100.0) L 04/18/18 04:40 MCH 26.4 pg (27.0-34.0) L 04/18/18 04:40 MCHC 33.8 g/dL (33.0-35.0) 04/18/18 04:40 RDW 16.6 % (11.6-16.5) H 04/18/18 04:40 Plt Count 120 X10^3/uL (150.0-450.0) L 04/18/18 04:40 MPV 9.5 fL (7.4-11.0) 04/18/18 04:40 Neut % (Auto) 64.0 % (42.0-75.0) 04/18/18 04:40 Lymph % (Auto) 15.6 % (21.0-51.0) L 04/18/18 04:40 Charles % (Auto) 10.3 % (0.0-13.0) 04/18/18 04:40 Eos % (Auto) 9.3 % (0.9-2.9) H 04/18/18 04:40 Baso % (Auto) 0.8 % (0.2-1.0) 04/18/18 04:40 Neut # (Auto) 3.1 x10^3/uL (2.2-4.8) 04/18/18 04:40 Lymph # (Auto) 0.8 X10^3/uL (1.3-2.9) L 04/18/18 04:40 Charles # (Auto) 0.5 x10^3/uL (0.3-0.8) 04/18/18 04:40 Eos # (Auto) 0.5 x10^3/uL (0.0-0.2) H 04/18/18 04:40 Baso # (Auto) 0.0 X10^3/uL (0.0-0.1) 04/18/18 04:40 Absolute Nucleated RBC 0.0 /100WBC 04/18/18 04:40 Sample Site Lr 04/13/18 11:15 ABG pH 7.440 (7.35-7.45) 04/13/18 11:15 ABG pCO2 41.0 mmHg (35.0-45.0) 04/13/18 11:15 ABG pO2 89.0 mmHg (80.0-100.0) 04/13/18 11:15 ABG HCO3 27.8 mmol/L (22-26) H 04/13/18 11:15 ABG O2 Saturation 97.0 % (90-100) 04/13/18 11:15 ABG Base Excess 3.3 mmol/L (-2.0-2.0) H 04/13/18 11:15 Kaleb Test Pos 04/13/18 11:15 A-a Gradient 59.0 mmHg 04/13/18 11:15 FiO2 28.0 04/13/18 11:15 Blood Gas Comments Pt odalys well. cdn 04/13/18 11:15 Sodium 135 mmol/L (136-145) L 04/18/18 04:40 Corrected Sodium 139 mmol/L (136-145) 04/18/18 04:40 Potassium 4.4 mmol/L (3.5-5.1) 04/18/18 04:40 Chloride 102 mmol/L (98-107) 04/18/18 04:40 Carbon Dioxide 29.0 mmol/L (21-32) 04/18/18 04:40 BUN 21 mg/dL (7-18) H 04/18/18 04:40 Creatinine 1.00 mg/dL (0.70-1.30) 04/18/18 04:40 Est GFR (MDRD) Af Amer > 60 (>60) 04/18/18 04:40 Est GFR (MDRD) Non-Af > 60 (>60) 04/18/18 04:40 Glucose 251 mg/dL (65-99) H 04/18/18 04:40 POC Glucose (mg/dL) 292 mg/dL (65-99) H 04/18/18 11:28 Calcium 8.4 mg/dL (8.5-10.1) L 04/18/18 04:40 Corrected Calcium 9.8 mg/dL (8.5-10.1) 04/18/18 04:40 Total Bilirubin 0.30 mg/dL (0.2-1.0) 04/18/18 04:40 AST 19 Units/L (15-37) 04/18/18 04:40 ALT 23 Units/L (12-78) 04/18/18 04:40 Alkaline Phosphatase 80 Units/L (46-116) 04/18/18 04:40 Total Protein 5.0 g/dL (6.4-8.2) L 04/18/18 04:40 Albumin 2.2 g/dL (3.4-5.0) L 04/18/18 04:40 Globulin 2.8 g/dL (2.5-4.5) 04/18/18 04:40 Albumin/Globulin Ratio 0.8 Ratio (1.1-2.1) L 04/18/18 04:40 TSH 3rd Generation 1.985 uIU/mL (0.358-3.74) 04/11/18 10:17 Specimen Type Catherized urine 04/11/18 12:46 Urine Color Yellow (YELLOW) 04/11/18 12:46 Urine Appearance Clear (CLEAR) 04/11/18 12:46 Urine pH 5.0 (5.0 - 8.0) 04/11/18 12:46 Ur Specific [place] 1.010 (1.000-1.030) 04/11/18 12:46 Urine Protein Negative (NEGATIVE) 04/11/18 12:46 Urine Glucose (UA) 4+ (NEGATIVE) 04/11/18 12:46 Urine Ketones Negative (NEGATIVE) 04/11/18 12:46 Urine Occult Blood Negative (NEGATIVE) 04/11/18 12:46 Urine Nitrite Negative (NEGATIVE) 04/11/18 12:46 Urine Bilirubin Negative (NEGATIVE) 04/11/18 12:46 Urine Urobilinogen Normal (NORMAL) 04/11/18 12:46 Ur Leukocyte Esterase Negative (NEGATIVE) 04/11/18 12:46 Acetone, Semi-Quant Negative (NEGATIVE) 04/12/18 12:03 - Plan (1) COPD (chronic obstructive pulmonary disease) with acute bronchitis Status: Acute Plan: RESP THERAPY, ABG, SUPPLEMENTAL O2. IV ATBX (2) Diabetic keto-acidosis Status: Resolved Qualifiers: Diabetes mellitus type: type 2 Diabetes mellitus complication detail: without coma Qualified Code(s): E11.10 - Type 2 diabetes mellitus with ketoacidosis without coma Plan: CONTINUOUS CARDIAC MONITORING. BLOOD SUGAR CONTROL, SSI. STRICT I & OS, GENTLE IV HYDRATION, REPEAT AM LABS, SUPPLEMENTAL O2, (3) CAD (coronary artery disease) Status: Chronic (4) Chronic kidney disease (CKD) Status: Chronic (5) HTN (hypertension) Status: Chronic (6) Hyponatremia Status: Acute (7) CHF (congestive heart failure) Status: Acute
--- NOTE | 2018-04-18 13:23 | PCM.PROG ---
Progress Note - Progress Note for Day of Date of Exam: 04/16/18 - Subjective Subjective: 72 WM ER ADMISSION WITH KETOSIS AND COPD EXACERBATION. PT DKA RESOLVED. PT CURRENTLY ON SSI AND BP CONTROL WITH IV ATBX AND RESP THERAPY. PT HAD BLACKENED AREA TO LEFT TIP GREAT TOE WITH HX CAD, NO KNOWN PAD. PT CO LEG PAIN, BUT DENIES INCREASED PAIN TO LEFT TOE AND NO REDNESS. PT CURRENTLY ON STATIN AND BLOOD THINNER, WILL ORDER CTA LOWER EXTREMITY Q AM. - Past Medical Family Social History Past Med/Fam/Surg Hx: No changes since H&P Allergies: Allergies zolpidem [From Ambien] Allergy (Verified 04/11/18 16:37) - Review of Systems ROS: No change since H&P - Vital Signs and I&O's Vital Signs: Temperature 98.0 F Pulse Rate [Apical] 72 Pulse Rate [Left Radial] 79 Pulse Rate 80 Respiratory Rate 20 Blood Pressure [Left Arm] 131/61 Blood Pressure [Right Calf] 102/58 Blood Pressure [Right Arm] 150/63 Blood Pressure 127/59 O2 Sat by Pulse Oximetry 98 Intake and Output: Intake & Output 04/16/18 04/17/18 04/18/18 04/19/18 11:59 11:59 11:59 11:59 Intake Total 2181 / 2181 2437 / 2437 2420 / 2420 Output Total 2550 / 2550 850 / 850 Balance -369 / -369 1587 / 1587 2420 / 2420 - Physical Exam Oriented: Normal Eyes: Normal Ear: Normal Nose: Normal Throat: Dry Respiratory: Diminished, Rhonchi Cardiovascular: Normal, Edema (+BILATERAL LE EDEMA) Auscultation: Bowel Sounds: Normal Tenderness: Normal Skin: Wound (BLACK, NECROTIC WOUND TO TIP LEFT GREAT TOE WITHOUT D/C OR REDNESS) Musculoskeletal: Back:Lumbar Mood Description: Flat Speech Pattern: Clear, Appropriate - Laboratory and Diagnostics Result Diagrams: 04/18/18 04:40 04/18/18 04:40 Labs: 04/12/18 17:03 Sputum - Expectorated Sputum Sputum Culture - Final 04/12/18 17:03 Sputum - Expectorated Sputum - Final Laboratory WBC 4.9 X10^3/uL (3.6-10.0) 04/18/18 04:40 RBC 3.85 X10^6/uL (4.7-6.0) L 04/18/18 04:40 Hgb 10.2 g/dL (13.5-18.0) L 04/18/18 04:40 Hct 30.2 % (42.0-54.0) L 04/18/18 04:40 MCV 78.3 fL (80.0-100.0) L 04/18/18 04:40 MCH 26.4 pg (27.0-34.0) L 04/18/18 04:40 MCHC 33.8 g/dL (33.0-35.0) 04/18/18 04:40 RDW 16.6 % (11.6-16.5) H 04/18/18 04:40 Plt Count 120 X10^3/uL (150.0-450.0) L 04/18/18 04:40 MPV 9.5 fL (7.4-11.0) 04/18/18 04:40 Neut % (Auto) 64.0 % (42.0-75.0) 04/18/18 04:40 Lymph % (Auto) 15.6 % (21.0-51.0) L 04/18/18 04:40 [place] % (Auto) 10.3 % (0.0-13.0) 04/18/18 04:40 Eos % (Auto) 9.3 % (0.9-2.9) H 04/18/18 04:40 Baso % (Auto) 0.8 % (0.2-1.0) 04/18/18 04:40 Neut # (Auto) 3.1 x10^3/uL (2.2-4.8) 04/18/18 04:40 Lymph # (Auto) 0.8 X10^3/uL (1.3-2.9) L 04/18/18 04:40 [place] # (Auto) 0.5 x10^3/uL (0.3-0.8) 04/18/18 04:40 Eos # (Auto) 0.5 x10^3/uL (0.0-0.2) H 04/18/18 04:40 Baso # (Auto) 0.0 X10^3/uL (0.0-0.1) 04/18/18 04:40 Absolute Nucleated RBC 0.0 /100WBC 04/18/18 04:40 Sample Site Lr 04/13/18 11:15 ABG pH 7.440 (7.35-7.45) 04/13/18 11:15 ABG pCO2 41.0 mmHg (35.0-45.0) 04/13/18 11:15 ABG pO2 89.0 mmHg (80.0-100.0) 04/13/18 11:15 ABG HCO3 27.8 mmol/L (22-26) H 04/13/18 11:15 ABG O2 Saturation 97.0 % (90-100) 04/13/18 11:15 ABG Base Excess 3.3 mmol/L (-2.0-2.0) H 04/13/18 11:15 Kaleb Test Pos 04/13/18 11:15 A-a Gradient 59.0 mmHg 04/13/18 11:15 FiO2 28.0 04/13/18 11:15 Blood Gas Comments Pt odalys well. cdn 04/13/18 11:15 Sodium 135 mmol/L (136-145) L 04/18/18 04:40 Corrected Sodium 139 mmol/L (136-145) 04/18/18 04:40 Potassium 4.4 mmol/L (3.5-5.1) 04/18/18 04:40 Chloride 102 mmol/L (98-107) 04/18/18 04:40 Carbon Dioxide 29.0 mmol/L (21-32) 04/18/18 04:40 BUN 21 mg/dL (7-18) H 04/18/18 04:40 Creatinine 1.00 mg/dL (0.70-1.30) 04/18/18 04:40 Est GFR (MDRD) Af Amer > 60 (>60) 04/18/18 04:40 Est GFR (MDRD) Non-Af > 60 (>60) 04/18/18 04:40 Glucose 251 mg/dL (65-99) H 04/18/18 04:40 POC Glucose (mg/dL) 292 mg/dL (65-99) H 04/18/18 11:28 Calcium 8.4 mg/dL (8.5-10.1) L 04/18/18 04:40 Corrected Calcium 9.8 mg/dL (8.5-10.1) 04/18/18 04:40 Total Bilirubin 0.30 mg/dL (0.2-1.0) 04/18/18 04:40 AST 19 Units/L (15-37) 04/18/18 04:40 ALT 23 Units/L (12-78) 04/18/18 04:40 Alkaline Phosphatase 80 Units/L (46-116) 04/18/18 04:40 Total Protein 5.0 g/dL (6.4-8.2) L 04/18/18 04:40 Albumin 2.2 g/dL (3.4-5.0) L 04/18/18 04:40 Globulin 2.8 g/dL (2.5-4.5) 04/18/18 04:40 Albumin/Globulin Ratio 0.8 Ratio (1.1-2.1) L 04/18/18 04:40 TSH 3rd Generation 1.985 uIU/mL (0.358-3.74) 04/11/18 10:17 Specimen Type Catherized urine 04/11/18 12:46 Urine Color Yellow (YELLOW) 04/11/18 12:46 Urine Appearance Clear (CLEAR) 04/11/18 12:46 Urine pH 5.0 (5.0 - 8.0) 04/11/18 12:46 Ur Specific [place] 1.010 (1.000-1.030) 04/11/18 12:46 Urine Protein Negative (NEGATIVE) 04/11/18 12:46 Urine Glucose (UA) 4+ (NEGATIVE) 04/11/18 12:46 Urine Ketones Negative (NEGATIVE) 04/11/18 12:46 Urine Occult Blood Negative (NEGATIVE) 04/11/18 12:46 Urine Nitrite Negative (NEGATIVE) 04/11/18 12:46 Urine Bilirubin Negative (NEGATIVE) 04/11/18 12:46 Urine Urobilinogen Normal (NORMAL) 04/11/18 12:46 Ur Leukocyte Esterase Negative (NEGATIVE) 04/11/18 12:46 Acetone, Semi-Quant Negative (NEGATIVE) 04/12/18 12:03 - Plan (1) COPD (chronic obstructive pulmonary disease) with acute bronchitis Status: Acute Plan: RESP THERAPY, ABG, SUPPLEMENTAL O2. IV ATBX (2) Diabetic keto-acidosis Status: Resolved Qualifiers: Diabetes mellitus type: type 2 Diabetes mellitus complication detail: without coma Qualified Code(s): E11.10 - Type 2 diabetes mellitus with ketoacidosis without coma Plan: CONTINUOUS CARDIAC MONITORING. BLOOD SUGAR CONTROL, SSI. STRICT I & OS, GENTLE IV HYDRATION, REPEAT AM LABS, SUPPLEMENTAL O2, (3) CAD (coronary artery disease) Status: Chronic (4) Chronic kidney disease (CKD) Status: Chronic (5) HTN (hypertension) Status: Chronic (6) Hyponatremia Status: Acute (7) CHF (congestive heart failure) Status: Acute (8) Wound, open, toe Status: Acute Plan: CTA LOWER EXTREMITIES, SURGICAL CONSULT. WOUND CARE
--- NOTE | 2018-04-18 13:28 | PCM.PROG ---
Progress Note - Progress Note for Day of Date of Exam: 04/18/18 - Subjective Subjective: 72 WM ER ADMISSION WITH KETOSIS AND COPD EXACERBATION. PT DKA RESOLVED. PT CURRENTLY ON SSI AND BP CONTROL WITH IV ATBX AND RESP THERAPY FOR BRONCHITIS MANAGEMENT. PT HAD BLACKENED AREA TO LEFT TIP GREAT TOE WITH HX CAD, NO KNOWN PAD. PT CO LEG PAIN, BUT DENIES INCREASED PAIN TO LEFT TOE AND NO REDNESS. CTA WITH PERIPHERAL ARTERY DISEASE. ORDERED CONSULT FOR WOUND, DR FERMIN. WOUND CULTURE AND XRAY OF LEFT FOOT R/O SIGN OM. PT CURRENTLY ON STATIN AND PLAVIX AND PROPHALAXIS LOVENOX. PT CONTINUES WITH CO MILD DIFFUSE WEAKNESS AND WHEEZING, IMPROVED SPUTUM PRODUCTION. - Past Medical Family Social History Past Med/Fam/Surg Hx: No changes since H&P Allergies: Allergies zolpidem [From Ambien] Allergy (Verified 04/11/18 16:37) - Review of Systems ROS: No change since H&P - Vital Signs and I&O's Vital Signs: Temperature 98.0 F Pulse Rate [Apical] 72 Pulse Rate [Left Radial] 79 Pulse Rate 80 Respiratory Rate 20 Blood Pressure [Left Arm] 131/61 Blood Pressure [Right Calf] 102/58 Blood Pressure [Right Arm] 150/63 Blood Pressure 127/59 O2 Sat by Pulse Oximetry 98 Intake and Output: Intake & Output 04/16/18 04/17/18 04/18/18 04/19/18 11:59 11:59 11:59 11:59 Intake Total 2181 / 2181 2437 / 2437 2420 / 2420 Output Total 2550 / 2550 850 / 850 Balance -369 / -369 1587 / 1587 2420 / 2420 - Physical Exam Oriented: Normal Eyes: Normal Ear: Normal Nose: Normal Throat: Dry Respiratory: Diminished, Rhonchi Cardiovascular: Normal, Edema (+BILATERAL LE EDEMA) Auscultation: Bowel Sounds: Normal Tenderness: Normal Skin: Wound (BLACK, NECROTIC WOUND TO TIP LEFT GREAT TOE WITHOUT D/C OR REDNESS) Musculoskeletal: Back:Lumbar Mood Description: Flat Speech Pattern: Clear, Appropriate - Laboratory and Diagnostics Result Diagrams: 04/18/18 04:40 04/18/18 04:40 Labs: 04/12/18 17:03 Sputum - Expectorated Sputum Sputum Culture - Final 04/12/18 17:03 Sputum - Expectorated Sputum - Final Laboratory WBC 4.9 X10^3/uL (3.6-10.0) 04/18/18 04:40 RBC 3.85 X10^6/uL (4.7-6.0) L 04/18/18 04:40 Hgb 10.2 g/dL (13.5-18.0) L 04/18/18 04:40 Hct 30.2 % (42.0-54.0) L 04/18/18 04:40 MCV 78.3 fL (80.0-100.0) L 04/18/18 04:40 MCH 26.4 pg (27.0-34.0) L 04/18/18 04:40 MCHC 33.8 g/dL (33.0-35.0) 04/18/18 04:40 RDW 16.6 % (11.6-16.5) H 04/18/18 04:40 Plt Count 120 X10^3/uL (150.0-450.0) L 04/18/18 04:40 MPV 9.5 fL (7.4-11.0) 04/18/18 04:40 Neut % (Auto) 64.0 % (42.0-75.0) 04/18/18 04:40 Lymph % (Auto) 15.6 % (21.0-51.0) L 04/18/18 04:40 [place] % (Auto) 10.3 % (0.0-13.0) 04/18/18 04:40 Eos % (Auto) 9.3 % (0.9-2.9) H 04/18/18 04:40 Baso % (Auto) 0.8 % (0.2-1.0) 04/18/18 04:40 Neut # (Auto) 3.1 x10^3/uL (2.2-4.8) 04/18/18 04:40 Lymph # (Auto) 0.8 X10^3/uL (1.3-2.9) L 04/18/18 04:40 [place] # (Auto) 0.5 x10^3/uL (0.3-0.8) 04/18/18 04:40 Eos # (Auto) 0.5 x10^3/uL (0.0-0.2) H 04/18/18 04:40 Baso # (Auto) 0.0 X10^3/uL (0.0-0.1) 04/18/18 04:40 Absolute Nucleated RBC 0.0 /100WBC 04/18/18 04:40 Sample Site Lr 04/13/18 11:15 ABG pH 7.440 (7.35-7.45) 04/13/18 11:15 ABG pCO2 41.0 mmHg (35.0-45.0) 04/13/18 11:15 ABG pO2 89.0 mmHg (80.0-100.0) 04/13/18 11:15 ABG HCO3 27.8 mmol/L (22-26) H 04/13/18 11:15 ABG O2 Saturation 97.0 % (90-100) 04/13/18 11:15 ABG Base Excess 3.3 mmol/L (-2.0-2.0) H 04/13/18 11:15 Kaleb Test Pos 04/13/18 11:15 A-a Gradient 59.0 mmHg 04/13/18 11:15 FiO2 28.0 04/13/18 11:15 Blood Gas Comments Pt odalys well. cdn 04/13/18 11:15 Sodium 135 mmol/L (136-145) L 04/18/18 04:40 Corrected Sodium 139 mmol/L (136-145) 04/18/18 04:40 Potassium 4.4 mmol/L (3.5-5.1) 04/18/18 04:40 Chloride 102 mmol/L (98-107) 04/18/18 04:40 Carbon Dioxide 29.0 mmol/L (21-32) 04/18/18 04:40 BUN 21 mg/dL (7-18) H 04/18/18 04:40 Creatinine 1.00 mg/dL (0.70-1.30) 04/18/18 04:40 Est GFR (MDRD) Af Amer > 60 (>60) 04/18/18 04:40 Est GFR (MDRD) Non-Af > 60 (>60) 04/18/18 04:40 Glucose 251 mg/dL (65-99) H 04/18/18 04:40 POC Glucose (mg/dL) 292 mg/dL (65-99) H 04/18/18 11:28 Calcium 8.4 mg/dL (8.5-10.1) L 04/18/18 04:40 Corrected Calcium 9.8 mg/dL (8.5-10.1) 04/18/18 04:40 Total Bilirubin 0.30 mg/dL (0.2-1.0) 04/18/18 04:40 AST 19 Units/L (15-37) 04/18/18 04:40 ALT 23 Units/L (12-78) 04/18/18 04:40 Alkaline Phosphatase 80 Units/L (46-116) 04/18/18 04:40 Total Protein 5.0 g/dL (6.4-8.2) L 04/18/18 04:40 Albumin 2.2 g/dL (3.4-5.0) L 04/18/18 04:40 Globulin 2.8 g/dL (2.5-4.5) 04/18/18 04:40 Albumin/Globulin Ratio 0.8 Ratio (1.1-2.1) L 04/18/18 04:40 TSH 3rd Generation 1.985 uIU/mL (0.358-3.74) 04/11/18 10:17 Specimen Type Catherized urine 04/11/18 12:46 Urine Color Yellow (YELLOW) 04/11/18 12:46 Urine Appearance Clear (CLEAR) 04/11/18 12:46 Urine pH 5.0 (5.0 - 8.0) 04/11/18 12:46 Ur Specific [place] 1.010 (1.000-1.030) 04/11/18 12:46 Urine Protein Negative (NEGATIVE) 04/11/18 12:46 Urine Glucose (UA) 4+ (NEGATIVE) 04/11/18 12:46 Urine Ketones Negative (NEGATIVE) 04/11/18 12:46 Urine Occult Blood Negative (NEGATIVE) 04/11/18 12:46 Urine Nitrite Negative (NEGATIVE) 04/11/18 12:46 Urine Bilirubin Negative (NEGATIVE) 04/11/18 12:46 Urine Urobilinogen Normal (NORMAL) 04/11/18 12:46 Ur Leukocyte Esterase Negative (NEGATIVE) 04/11/18 12:46 Acetone, Semi-Quant Negative (NEGATIVE) 04/12/18 12:03 - Plan (1) COPD (chronic obstructive pulmonary disease) with acute bronchitis Status: Acute Plan: RESP THERAPY, ABG, SUPPLEMENTAL O2. IV ATBX (2) Diabetic keto-acidosis Status: Resolved Qualifiers: Diabetes mellitus type: type 2 Diabetes mellitus complication detail: without coma Qualified Code(s): E11.10 - Type 2 diabetes mellitus with ketoacidosis without coma Plan: CONTINUOUS CARDIAC MONITORING. BLOOD SUGAR CONTROL, SSI. STRICT I & OS, GENTLE IV HYDRATION, REPEAT AM LABS, SUPPLEMENTAL O2, (3) CAD (coronary artery disease) Status: Chronic (4) Chronic kidney disease (CKD) Status: Chronic (5) HTN (hypertension) Status: Chronic (6) Hyponatremia Status: Acute (7) CHF (congestive heart failure) Status: Acute (8) Wound, open, toe Status: Acute Plan: CTA LOWER EXTREMITIES, SURGICAL CONSULT. WOUND CARE
--- NOTE | 2018-04-18 14:14 | RAD ---
History: Left great toe pain and open wound Study: Three views of the left foot Findings: There is swelling on the plantar aspect of the great toe. There is no bone erosion or destruction. There is no fracture or subluxation. There is no marginal erosion or osteophyte formation. Impression: Soft tissue swelling about the great toe, no radiographic evidence for osteomyelitis. Reported By:
[2018-04-18 16:52] VITALS: BP 118/69
== END 2018-04-18 17:50 | disposition home health service (06) | DRG 638 ==
LOC: ER 09:27 → ICU 15:09 → MED/SURG 04-17 14:23
PROVIDERS: ADMIT Internal Medicine; ATTEND Internal Medicine
DX: X58.XXXA Exposure to other specified factors, initial encounter; I25.10 Atherosclerotic heart disease of native coronary artery without angina pectoris; E78.2 Mixed hyperlipidemia; S91.102A Unspecified open wound of left great toe without damage to nail, initial encounter; E87.1 Hypo-osmolality and hyponatremia; R60.0 Localized edema; Z79.01 Long term (current) use of anticoagulants; E11.10 Type 2 diabetes mellitus with ketoacidosis without coma; J20.8 Acute bronchitis due to other specified organisms; N18.9 Chronic kidney disease, unspecified; R06.02 Shortness of breath; R53.1 Weakness; R26.89 Other abnormalities of gait and mobility; I12.9 Hypertensive chronic kidney disease with stage 1 through stage 4 chronic kidney disease, or unspecified chronic kidney disease; J44.1 Chronic obstructive pulmonary disease with (acute) exacerbation
CPT/HCPCS: 36415; 36600; 51702; 70450; 71010; 71045; 73630; 73706; 80053; 81003; 82009; 82803; 84443; 85025; 87070; 87205; 94640; 96365; 96374; 96375; 97163; 97166; 97530; 99221; 99231; 99283; 99285; A4222; C9113; J0696; J1650; J1815; J7030; J7050; J7613; J7620